=== PATIENT | female | born 2000 | race Caucasian/White ===

== ENCOUNTER 2019-06-15 19:25 | Outpatient (CLI) | payer MEDICAID, SELFPAY ==
[2019-06-15 19:49] VITALS: TEMP 36.5; O2SAT 98
[2019-06-15 19:50] VITALS: BP 114/62; PULSE 76
[2019-06-15 20:17] VITALS: BMI 29.4
[2019-06-15 20:33] LABS: ROM Internal Control Test YES-OK TO RESULT pt. (Internal QC); ROM Patient Test Negative (Negative)
--- NOTE | 2019-06-16 09:49 | OB.TRI.NOTE ---
History of Present Illness Date of Service: 06/15/19 Reason For Visit: rule out SROM, threatened PTL Date of Service: 06/15/19 Gestational age: 34 4/7 Allergies No Known Drug Allergies Allergy (Verified 06/15/19 20:20) none Laboratory Studies: Laboratory Tests 06/15/19 Range/Units 20:00 Vag Amniotic Fld Detect Negative (Negative) Physical Exam Vitals: Vital Signs Temp Pulse BP Pulse Ox 97.7 F L 76 114/62 98 06/15/19 19:49 06/15/19 19:50 06/15/19 19:50 06/15/19 19:49 NST - FHR Rate Baby A Baseline: 130 Variability:: Moderate Accelerations:: 15 x 15 Decelerations:: None NST Reactive:: Yes, Appropriate for gestational age FHR Category:: Category I Uterine Activity:: no ctxs Impression/Plan 18 YOF nulliparrous patient at 34 4/7 weeks, threatened PTL, no evidence of SROM or PTL d/c home and return prn or as scheduled symptomatic measures reviewed by nursing for musculoskeletal back pain
== END 2019-06-15 20:50 | disposition home or self-care (01) ==
LOC: WPOUT 19:36 → OBT 19:37
PROVIDERS: Visit Provider Obstetrics & Gynecology
DX: O60.03 Preterm labor without delivery, third trimester (principal); Z3A.34 34 weeks gestation of pregnancy
CPT/HCPCS: 59025; 59050; 84112; 99218; G0378

== ENCOUNTER 2019-06-20 21:05 | Outpatient (CLI) | payer MEDICAID, SELFPAY ==
[2019-06-20 21:12] VITALS: BMI 29.4
[2019-06-20 21:18] VITALS: TEMP 37; O2SAT 97
[2019-06-20 21:19] VITALS: BP 96/65; PULSE 92
[2019-06-20 22:44] VITALS: TEMP 36.1; O2SAT 97
[2019-06-20 22:45] VITALS: BP 102/68; PULSE 83; PULSE 85; O2SAT 97
[2019-06-20 23:30] VITALS: BP 104/74; PULSE 83; TEMP 36.1
--- NOTE | 2019-06-22 18:17 | OB.TRI.NOTE ---
History of Present Illness Was patient seen by the physician?: No Reason For Visit: RULE OUT LABOR Date of Service: 06/20/19 Final AMIE: 07/23/19 Gestational age: 35 Weeks and 4 Days Allergies No Known Drug Allergies Allergy (Verified 06/20/19 21:26) none Physical Exam Vitals: Vital Signs Temp Pulse BP Pulse Ox 97.0 F L 83 104/74 97 06/20/19 23:30 06/20/19 23:30 06/20/19 23:30 06/20/19 22:45 NST - FHR Rate Baby A Baseline: 125 Variability:: Moderate Accelerations:: 15 x 15 Decelerations:: Variable NST Reactive:: Yes Uterine Activity:: Irregular Impression/Plan Reactive NST for threatened PTL
== END 2019-06-20 23:55 | disposition home or self-care (01) ==
LOC: WPOUT 21:11 → WP 21:44
PROVIDERS: Visit Provider Obstetrics & Gynecology
DX: O60.00 Preterm labor without delivery, unspecified trimester (principal); Z3A.00 Weeks of gestation of pregnancy not specified
CPT/HCPCS: 59025; 59050; 99218; G0378

== ENCOUNTER → 2019-06-21 16:55 | Outpatient (CLI) | payer MEDICAID, SELFPAY ==
[2019-06-20 21:12] VITALS: BMI 29.4
[2019-06-21 17:02] VITALS: BMI 29.2
[2019-06-21 17:12] VITALS: BP 110/64; PULSE 95; TEMP 36.6
[2019-06-21 17:36] LABS: ROM Internal Control Test YES-OK TO RESULT pt. (Internal QC); ROM Patient Test Negative (Negative)
--- NOTE | 2019-06-24 10:56 | OB.TRI.NOTE ---
- Problem List (1) Vaginal discharge during Status: Acute History of Present Illness Date of Service: 06/21/19 Was patient seen by the physician?: No Reason For Visit: Vaginal discharge, possible rupture of membranes Date of Service: 06/21/19 Final AMIE: 07/23/19 Gestational age: 35 Weeks and 6 Days History of Present Illness: 18 year old female presented with vaginal discharge and possible rupture of membranes. No signs of active labor. O: Category 1 FHT ROM plus negative Cervix closed A: Vaginal discharge False labor P: 1) False Labor ok to D/C home Allergies No Known Drug Allergies Allergy (Verified 06/20/19 21:26) none Laboratory Studies: Laboratory Tests 06/21/19 Range/Units 17:08 Vag Amniotic Fld Detect Negative (Negative) Physical Exam Vitals: Vital Signs Temp Pulse BP 97.9 F 95 110/64 06/21/19 17:12 06/21/19 17:12 06/21/19 17:12
--- NOTE | 2019-06-25 11:49 | OB.TRI.NOTE ---
- Problem List (1) Vaginal discharge during Status: Acute History of Present Illness Date of Service: 06/24/19 Was patient seen by the physician?: No Reason For Visit: Vaginal discharge, possible rupture of membranes Date of Service: 06/21/19 Final AMIE: 07/23/19 Gestational age: 36 Weeks and 0 Days History of Present Illness: presents for contractions but have decreased since arrival. No vaginal bleeding or fluid leakage O: FHT 135, moderate variability, accels, reactive one contraction A: False Labor P: 1) Discharge home, labor instructions reviewed Allergies No Known Drug Allergies Allergy (Verified 06/20/19 21:26) none Laboratory Studies: Laboratory Tests 06/21/19 Range/Units 17:08 Vag Amniotic Fld Detect Negative (Negative) Physical Exam Vitals: Vital Signs Temp Pulse BP 97.9 F 95 110/64 06/21/19 17:12 06/21/19 17:12 06/21/19 17:12
== END | disposition home or self-care (01) ==
PROVIDERS: Referring Provider Advanced Practice Midwife; Visit Provider Advanced Practice Midwife
DX: O60.03 Preterm labor without delivery, third trimester (principal); Z3A.35 35 weeks gestation of pregnancy
CPT/HCPCS: 59025; 59050; 84112; 99218; G0378

== ENCOUNTER 2019-07-08 02:05 | Outpatient (CLI) | payer MEDICAID, SELFPAY ==
[2019-06-21 17:02] VITALS: BMI 29.2
[2019-07-08 02:18] VITALS: PULSE 82; O2SAT 97
[2019-07-08 02:19] VITALS: BP 105/62; PULSE 75
[2019-07-08 02:21] VITALS: BP 105/62; PULSE 82; TEMP 36.7; O2SAT 98
[2019-07-08 02:35] VITALS: BMI 30.9
[2019-07-08 03:05] LABS: ROM Internal Control Test YES-OK TO RESULT pt. (Internal QC); ROM Patient Test Negative (Negative)
--- NOTE | 2019-07-08 23:32 | OB.TRI.NOTE ---
History of Present Illness Date of Service: 07/08/19 Was patient seen by the physician?: No Reason For Visit: R/O SROM Final AMIE: 07/23/19 Gestational age: 37 Weeks and 6 Days Allergies No Known Drug Allergies Allergy (Verified 07/08/19 02:37) none Laboratory Studies: Laboratory Tests 07/08/19 Range/Units 02:40 Vag Amniotic Fld Detect Negative (Negative) Physical Exam Vitals: Vital Signs Temp Pulse BP Pulse Ox 98.0 F 82 105/62 98 07/08/19 02:21 07/08/19 02:21 07/08/19 02:21 07/08/19 02:21 NST - FHR Rate Baby A Baseline: 125 Variability:: Moderate Accelerations:: 15 x 15 Decelerations:: Variable NST Reactive:: Yes Uterine Activity:: Irritability Impression/Plan Reactive NST for false labor
== END 2019-07-08 04:00 | disposition home or self-care (01) ==
LOC: WPOUT 02:07 → WP 02:09
PROVIDERS: Visit Provider Obstetrics & Gynecology
DX: O47.1 False labor at or after 37 completed weeks of gestation (principal); Z3A.37 37 weeks gestation of pregnancy
CPT/HCPCS: 59025; 59050; 84112; 99218; G0378

== ENCOUNTER 2019-07-16 19:00 | Inpatient (IN) | payer MEDICAID, SELFPAY ==
[2019-07-16 19:31] VITALS: BMI 29.8
[2019-07-16 19:33] VITALS: PULSE 70; TEMP 36.7; O2SAT 99
[2019-07-16 19:34] VITALS: BP 106/65; PULSE 81
[2019-07-16] MEDS: Lactated Ringers 1,000 ML 50 ML IV (19:45)
[2019-07-16 20:05] LABS: Absolute Lymphocyte Count 1.55 X10^3/uL (0.83-4.51); Absolute Neutrophil Count 7.3 X10^3/uL (2.0-7.7); Basophil# 0.03 X10^3/uL; Basophil% 0.3 % (0-1); Eosinophil# 0.04 X10^3/uL; Eosinophils% 0.4 % (0-5); Hematocrit 34.1 % (37-47); Hemoglobin 11.2 g/dL (12.0-15.0); Lymphocyte # 1.55 X10^3/ul (4.0); Lymphocyte % 16.1 % (19-41); Mean Corp Hgb Conc 32.8 g/dL (32-36); Mean Corpuscular Hgb 29.1 pg (27.0-32.0); Mean Corpuscular Volume 88.6 fL (81-99); Mean Platelet Vol. 11.7 fl (6.2-12.0); Monocyte# 0.65 X10^3/uL; Monocyte% 6.8 % (0-10); NRBC Flagged by Analyzer 0 % (0-5); Neutrophil # 7.27 X10^3/uL (2.7-7.7); Neutrophil % 75.8 % (47-70); Platelet Count 219 K/mm3 (150-450); RBC Distribution Width SD 44.3 fl (35.1-43.9); Red Blood Count 3.85 M/mm3 (4.2-5.4); White Blood Count 9.6 K/mm3 (4.4-11.0)
[2019-07-16] MEDS: miSOPROStol 25 MCG TABLET PO (20:30)
[2019-07-16 22:15] LABS: Probe Check PASS; Specimen Processing Control PASS
[2019-07-16 22:22] VITALS: PULSE 61; TEMP 36.6; O2SAT 98
[2019-07-16 22:23] VITALS: BP 112/66; PULSE 73
[2019-07-17] VITALS (49 sets, daily range): BP systolic 99–132; BP diastolic 58–79; PULSE 51–132; RESP 16; TEMP 36.1–37.7; O2SAT 90–99
--- NOTE | 2019-07-17 00:18 | PCM.HP.OB ---
- Problem List (1) Polyhydramnios Status: Acute (2) Encounter for induction of labor Status: Acute History Date of Admission: 07/17/19 Final AMIE: 07/23/19 Final AMIE Source: US <20 weeks Gestational age: 39 Weeks and 1 Days History of this : This is a 19 year-old, G [1], P [0], at 39 weeks gestational age. Presents for induction of labor for polyhydramnios. Allergies No Known Drug Allergies Allergy (Verified 07/16/19 19:32) none Home Medications: Home Medications Vits [Prenatabs FA ] 1 tab PO DAILY 06/15/19 Smoking Status: Never smoker Alcohol: None Number of Fetus(es): 1 NST - FHR Rate Baby A Baseline: 130 Variability:: Moderate Accelerations:: 15 x 15 Decelerations:: None FHR Category:: Category I Uterine Activity:: Irregular History Past Pregnancies: Past Pregnancies Delivery Date Name GA/ Weeks Outcome Route Wt Infant Sex Labor Length Anesthesia Delivery Location Provider FOB Labs: Mom's Problem List Problem Status Onset Code Polyhydramnios Acute O40.9XX0 Encounter for induction of labor Acute Z34.90 Mom's Labs & Results 07/16/19 07/16/19 07/16/19 19:45 19:45 20:10 WBC 9.6 RBC 3.85 L Hgb 11.2 L Hct 34.1 L MCV 88.6 MCH 29.1 MCHC 32.8 RDW Std Deviation 44.3 H RDW Coeff of Edouard 14.0 Plt Count 219 MPV 11.7 Immature Gran % (Auto) 0.600 Neut % (Auto) 75.8 H Lymph % (Auto) 16.1 L [place] % (Auto) 6.8 Eos % (Auto) 0.4 Baso % (Auto) 0.3 Absolute Neuts (auto) 7.3 Absolute Lymphs (auto) 1.55 Nucleated RBC % 0 COVID-19 (QUEENIE) Negative Blood Type A POSITIVE Antibody Screen NEGATIVE Course Did the patient receive Yes care? Labs Blood Type: A RH: POSITIVE RPR/VDRL/Syphilis Nonreactive Rubella status Immune HbSAg Negative Date Done: 01/12/19 Chlamydia Negative Gonorrhea Negative HIV/AIDS Non-Reactive Group B Strep: Negative Current Obstetrical History Gestational Diabetes No Incompetent Cervix No Infertility No IUGR No Macrosomia No: LGA possible per pt report Hypertension/Pre-eclampsia No Placenta Previa/Abruption No PTL/PROM No Uterine anomaly No Oligohydramnios No Polyhydramnios Yes: FERDINAND 35-36 Multiple gestation No Past Medical History Asthma No Diabetes No Hypertension No Heart disease No Mitral valve prolapse No Neurologic/Seizure disorder/ No Migraines Kidney disease No Liver disease No Varicosities No Clotting disorders/Hx of DVT No Thyroid Dysfunction No Other medical diseases No Psychiatric disorders No Major trauma No Abnormal PAP smear No Sleep apnea No Mammogram in the last 2 years No Enter DETAILS of medical 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 Social History Marital Status: SINGLE Alleged father Zeke Hx Smoking No Smoking Status Never smoker Expected Delivery Method: Spontaneous Vaginal Review of Systems Constitutional: Denies: Chills, Fever, Weight Change HEENT: Denies: Head Aches, Sinus Congestion, Sinus Drainage Cardiovascular: Denies: Chest Pain, Palpitations Respiratory: Denies: Cough, Shortness of breath at rest, Sputum production Gastrointestinal: Denies: Abdominal Pain, Nausea, Vomiting Genitourinary: Denies: Dysuria Psychiatric: Denies: Anxiety, Depression, Homicidal Ideations, Suicidal Ideations Physical Exam Vitals: Vital Signs Temp Pulse BP Pulse Ox 97.1 F L 63 117/74 98 07/17/19 00:03 07/17/19 00:04 07/17/19 00:04 07/17/19 00:03 General: Alert, Oriented x3, Cooperative HEENT: Atraumatic, Normocephalic Cardiovascular: Regular rate, Regular Rhythm, No murmurs Lungs: Clear to auscultation, Normal air movement, No rhonchi, No wheeze Abdomen: Bowel Sounds Present, Gravid Extremities:: No edema Neurological: Deep Tendon Reflexes 2+/4 and Symmetrical MANAGER [place]: Normal external genitalia Estimated gestational size: Appropriate for gestational size Presentation: Cephalic Cervix Dilation (cm): 1.5 - per nursing staff Station: -2 Effacement (%): 70 Assessment/Plan All Active Problems Vaginal discharge during (Acute) Polyhydramnios (Acute) Encounter for induction of labor (Acute) This is a 19 year-old, G [], P [], at 39 weeks gestational age.
[2019-07-17] MEDS: Oxytocin 30 units/NS 500 ml 30 UNITS/500 ML IV.SOLN IV (00:57)
[2019-07-17] MEDS: fentaNYL 100 MCG/2 ML Ampul IV ×4 (08:20→14:20)
--- NOTE | 2019-07-17 08:22 | PN.OBGYN_ITS ---
Patient Problems: Active and Suspected Problems Polyhydramnios (Acute) Encounter for induction of labor (Acute) Subjective: Patient seen at bedside. Reports increased pain with contractions. Rates pain 8/10. May get IV pain medication, does not want epidural at this time. Objective: at 39.1 weeks gestation here for induction of labor for polyhydramnios. CE- 2/70/-2 Pitocin rate at 10 mu/min Category 1 tracing FHT 140's Contractions via TOCO 1-4min and palpates minimal and relaxed in between - Physical Exam Vitals/I&O's: Vital Signs Temp Pulse BP Pulse Ox 97.9 F 60 109/74 99 07/17/19 07:08 07/17/19 08:05 07/17/19 08:05 07/17/19 07:08 Weight: 163 lb Body Mass Index (BMI) 29.8 Intake and Output for Last 24 Hours 07/15/19 07/16/19 07/17/19 23:59 23:59 23:59 Intake Total 1810.67 / 1810.67 Output Total 100 / 100 450 / 450 Balance -100 / -100 1360.67 / 1360.67 General: Alert, Oriented x3, Cooperative HEENT: Atraumatic, PERRLA, EOMI, Normocephalic Neck: Supple Lungs: Normal air movement Cardiovascular: Regular rate Abdomen: Soft, Non Tender, Gravid Skin: No rashes Neurological: Cranial nerves II-XII grossly intact Psych/Mental Status: Normal Affect, Appropriate Laboratory Results 07/16/19 19:45: WBC 9.6, RBC 3.85 L, Hgb 11.2 L, Hct 34.1 L, MCV 88.6, MCH 29.1, MCHC 32.8, RDW Std Deviation 44.3 H, RDW Coeff of Edouard 14.0, Plt Count 219, MPV 11.7, Immature Gran % (Auto) 0.600, Neut % (Auto) 75.8 H, Lymph % (Auto) 16.1 L, [place] % (Auto) 6.8, Eos % (Auto) 0.4, Baso % (Auto) 0.3, Absolute Neuts (auto) 7.3, Absolute Lymphs (auto) 1.55, Nucleated RBC % 0 07/16/19 19:45: Blood Type A POSITIVE, Antibody Screen NEGATIVE 07/16/19 20:10: COVID-19 (QUEENIE) Negative Current Medications Acetaminophen (Tylenol) 325 - 650 mg PO Q4H PRN PRN PRN Reason: Pain Score 1-3/10 Al Hydroxide/Mg Hydroxide (Mylanta Ii) 15 - 30 ml PO Q4H PRN PRN PRN Reason: INDIGESTION Citric Acid/Sodium Citrate (Bicitra) 30 ml PO X1 PRN PRN Reason: Section Fentanyl Citrate (Sublimaze (100mcg Ampule)) 25 - 50 mcg IV Q2H PRN PRN PRN Reason: Pain Score 4-10/10 Last Admin: 07/17/19 08:20 Dose: 50 mcg Documented by: Lactated Ringer's () 500 mls @ 999 mls/hr IV .Q31M PRN PRN Reason: Epidural Lactated Ringer's () 500 mls @ 999 mls/hr IV .Q31M PRN PRN Reason: Corrective Measures Lactated Ringer's () 1,000 mls @ 50 mls/hr IV .Q20H [facility] Last Infusion: 07/17/19 07:29 Dose: 50 mls/hr Documented by: Oxytocin/Sodium Chloride () 30 units in 500 mls @ 2 mls/hr IV .Q250H [facility] Last Infusion: 07/17/19 05:40 Dose: 10 mls/hr Documented by: Ondansetron HCl (Zofran) 4 mg IV Q4H PRN PRN PRN Reason: NAUSEA Prochlorperazine Edisylate (Compazine Iv) 10 mg IV Q6H PRN PRN PRN Reason: NAUSEA Sodium Chloride () 10 - 40 ml IV X1 PRN PRN Reason: SALINE FLUSH Medical Necessity - Tobacco Use Smoking Status: Never smoker Assessment/Plan All Active Problems Vaginal discharge during (Acute) Polyhydramnios (Acute) Encounter for induction of labor (Acute) at 39.1 weeks gestation here for induction of labor due to polyhydramnios A/P Continue current management Titrate pitocin per protocol Pain medication if indicated Discussed A.R.O.M later this afternoon if minimal cervical change Anticipate
[2019-07-17] MEDS: Lactated Ringers 500 ML 999 ML IV ×2 (09:38→15:10)
[2019-07-17] MEDS: Lactated Ringers 1,000 ML 50 ML IV (10:18)
[2019-07-17] MEDS: Ondansetron 4 MG/2 ML Vial IV (13:02)
--- NOTE | 2019-07-17 13:08 | PCM.PN.BLA ---
Progress Note Patient seen at bedside. Reports pain increasing with contractions. Has received 3 doses of IV pain medication. Breathing well through contractions. Category 1 tracing - Pitocin being titrated slowly due to some times warranting tachysystole. Pitocin at 12mu/min. Contractions every 1-3 minutes that continue to palpate mild and relaxed in between. Dr. Olea in room and CE completed = /-2 ( no change from this morning's exam) A/P at 39.1 weeks gestation induction for polyhydramnios Category 1 tracing A.R.O.M for moderate amount of clear fluid Continue current plan of care Epidural when indicated Anticipate Dr. Moyer notified of above and agrees with plan of care STROKE Vital Signs/Narrative: Vital Signs Temp Pulse BP Pulse Ox 07/17/19 12:28 70 123/77 H 07/17/19 11:36 58 L 120/79 98 07/17/19 11:35 97.9 F 07/17/19 10:20 54 L 132/76 H 07/17/19 09:14 60 99/65 07/17/19 09:13 98
[2019-07-17] MEDS: Oxytocin 30 units/NS 500 ml 30 UNITS/500 ML IV.SOLN 334 UNITS IV (18:13)
--- NOTE | 2019-07-17 19:00 | PCM.OPRPT ---
Problem List (1) 39 weeks gestation of Status: Acute (2) Primiparous Status: Acute (3) Polyhydramnios Status: Acute Report of Operation Date of Procedure: 07/17/19 Pre-Operative Diagnosis: 39 week gestation, primiparous patient, polyhydramnios, LGA Post-Operative Diagnosis: As above Surgery/Procedure Performed:: Description of Surgical Findings:: Macrosomic in OA position. 1 min 37 sec shoulder dystocia. Normal appearing and intact placenta with a three-vessel cord. Type of Anesthesia:: None Special Medications: None Specimen's removed: Placenta Drains: None Estimated Blood Loss (mL): 350 Description of Procedure: Patient was complete and pushing. The head of the delivered in occiput anterior position by Siri Portillo CNM. After delivery of the head, I stepped in for the remainder of the delivery as there was a delay in delivering the anterior shoulder. Suprapubic pressure was applied for about 60 seconds and the anterior shoulder was unable to be delivered with suprapubic pressure. An episiotomy was created, and the posterior arm was then delivered without any force or delay. Once the posterior arm was delivered the shoulders, then followed by the body of the were delivered without any force or delay. The shoulder dystocia was 1 minute and 37 seconds in length. The cord was clamped and cut immediately and the infant was handed off to the nursery staff. Cord gases were collected. The placenta delivered spontaneously and was noted to be intact. The fundus was firm and bleeding was hemostatic. A 3rd degree perineal laceration was repaired in usual fashion. Sponge and instrument counts were correct. Vaginal sweep was performed. Grafts/Implants Used: None - Complications None - Admit VTE Documentation VTE Present on Admission: No VTE Mechan Device Prophylaxis: SCD's Vaginal Delivery Maternal Presentation: Medically Indicated Induction Method of Induction: Pitocin, Amniotomy, Cytotec Medical Reason for Induction: - - Polyhydramnios Amniotic Membrane Rupture Type: Artificial Amniotic Fluid Description: Clear Surgery/ Procedure Performed: Spontaneous Vaginal Delivery Type of Anesthesia: None Presentation: Vertex Placental Delivery Description: Spontaneous Cord Vessel Description: 3 Vessels Cord Gases drawn per routine: ABG, VBG Cord Entanglement: None Infant A gender: Female (1 minute): 8 (5 minute): 9 Episiotomy Description: Midline Laceration: 3rd degree Medications given after delivery: IV Pitocin Complications: None
--- NOTE | 2019-07-17 20:19 | PCM.PN.BLA ---
Progress Note 1530- Called to hospital due to patient being 10cm dilated and bearing down with contractions. at 39.1 weeks for induction of labor for polyhydramnios. Patient bearing down with contractions. Stated feels good to push with contractions. Pitocin recently decreased to 7mu/min due to tachysystole. Labor support given to patient Anticipate Dr. Moyer called to room once 2+ station due to possibly LGA STROKE Vital Signs/Narrative: Vital Signs Pulse BP Pulse Ox 07/17/19 20:09 65 119/72 07/17/19 19:54 64 126/75 H 07/17/19 19:40 69 97 07/17/19 19:39 78 126/77 H 07/17/19 19:27 79 99 07/17/19 19:24 69 121/74 H 07/17/19 19:10 60 97 07/17/19 19:09 63 120/72 07/17/19 18:06 132 H 96 07/17/19 17:58 93 97 07/17/19 17:53 100 96 07/17/19 17:49 80 129/59 H
[2019-07-17] MEDS: 0.9% Saline Lock 10 ML Syringe IV (21:11)
--- NOTE | 2019-07-17 21:42 | NURSING ---
report given to aorr RN. that rn to assume care of pt and infant at this time.
[2019-07-17] MEDS: Ibuprofen 600 MG Tablet PO (21:54)
[2019-07-18] VITALS (8 sets, daily range): BP systolic 104–121; BP diastolic 57–67; PULSE 67–84; RESP 14–16; TEMP 36.6–36.9; O2SAT 98–99
[2019-07-18] MEDS: Acetaminophen 500 MG Tablet 1000 MG PO ×2 (01:36→13:17)
[2019-07-18] MEDS: Ibuprofen 600 MG Tablet PO ×3 (04:46→19:13)
--- NOTE | 2019-07-18 07:58 | PCM.PN.OB ---
Patient Problems: Active and Suspected Problems (Last Updated 07/17/19 @ 08:28 by Siri Portillo CNM) 39 weeks gestation of (Acute) Primiparous (Acute) Third degree perineal laceration during delivery (Acute) Polyhydramnios (Acute) Encounter for induction of labor (Acute) Subjective: Patient seen at bedside. Resting comfortably. Pain controlled with Tylenol and Motrin PO. Lochia decreasing. Keeping ice/tucks to perineum. . Voicing no concerns at this time. - Physical Exam Vitals/I&O's: Vital Signs Temp Pulse Resp BP Pulse Ox 97.9 F 84 14 109/67 97 07/18/19 04:27 07/18/19 04:27 07/18/19 04:27 07/18/19 04:27 07/17/19 21:09 Oxygen Delivery Method Room Air Weight: 163 lb Body Mass Index (BMI) 29.8 Intake and Output for Last 24 Hours 07/16/19 07/17/19 07/18/19 23:59 23:59 23:59 Intake Total 4291.37 / 4291.37 Output Total 100 / 100 1400 / 1400 450 / 450 Balance -100 / -100 2891.37 / 2891.37 -450 / -450 General: Alert, Oriented x3, Cooperative Lungs: Normal air movement Abdomen: Soft, Non Tender Extremities: No Calf Tenderness Skin: No rashes Neurological: Cranial nerves II-XII grossly intact Psych/Mental Status: Normal Affect, Appropriate Current Medications Acetaminophen (Tylenol) 1,000 mg PO Q8H PRN PRN PRN Reason: Pain Score 1-310 Last Admin: 07/18/19 01:36 Dose: 1,000 mg Documented by: Bisacodyl (Dulcolax) 10 mg RECTAL UD PRN PRN Reason: If no BM Dibucaine (Dibucaine) 1 applic TOPICAL TID PRN PRN; Protocol PRN Reason: Discomfort Hydrocortisone (Hytone) 1 applic TOPICAL TID PRN PRN; Protocol PRN Reason: Discomfort Ibuprofen (Motrin) 600 mg PO Q6H PRN PRN PRN Reason: Pain Score 1-3/10 Last Admin: 07/18/19 04:46 Dose: 600 mg Documented by: Methylergonovine Maleate (Methergine) 0.2 mg IM X1 PRN PRN Reason: Excess bleeding/uterine atony Ondansetron HCl (Zofran) 4 mg IV Q4H PRN PRN PRN Reason: Nausea Oxycodone HCl (Oxyir) 5 - 10 mg PO Q4H PRN PRN PRN Reason: Pain Score 4-10/10 Senna/Docusate Sodium (Senokot-S, Janice-Colace) 1 - 2 tablet PO DAILY PRN PRN PRN Reason: Constipation Simethicone (Mylicon) 80 mg PO PCHS PRN PRN Reason: Indigestion/Stomach pain Sodium Chloride () 5 - 15 ml IV UD PRN PRN Reason: SALINE FLUSH Medical Necessity - Tobacco Use Smoking Status: Never smoker Assessment/Plan All Active Problems (Last Updated 07/17/19 @ 08:28 by Siri Portillo CNM) 39 weeks gestation of (Acute) Primiparous (Acute) Third degree perineal laceration during delivery (Acute) Vaginal discharge during (Acute) Polyhydramnios (Acute) Encounter for induction of labor (Acute) PPD #1 Pain controlled Continue present management
[2019-07-18] MEDS: Senna/Docusate Sodium 1 Tablet PO (13:17)
[2019-07-19 01:46] VITALS: BP 105/70; PULSE 73
[2019-07-19 01:47] VITALS: BP 105/70; PULSE 73; RESP 16; TEMP 36.4
[2019-07-19] MEDS: Ibuprofen 600 MG Tablet PO ×2 (02:15→08:46)
[2019-07-19 07:41] VITALS: BP 107/60; PULSE 71
[2019-07-19 07:42] VITALS: BP 107/60; PULSE 71; RESP 16; TEMP 36.9; O2SAT 99
--- NOTE | 2019-07-19 08:02 | PCM.PN.OB ---
Patient Problems: Active and Suspected Problems (Last Updated 07/17/19 @ 08:28 by Siri Portillo CNM) Third degree perineal laceration during delivery (Acute) 39 weeks gestation of (Acute) Primiparous (Acute) Polyhydramnios (Acute) Encounter for induction of labor (Acute) Subjective: Doing well. Pain well controlled. Ambulating voiding without difficulty. Tolerating regular diet without nausea or vomiting. Lochia normal. Denies lightheadedness, dizziness, chest pain, shortness of breath, leg pain. - Physical Exam Vitals/I&O's: Vital Signs Temp Pulse Resp BP Pulse Ox 98.5 F 71 16 107/60 99 07/19/19 07:42 07/19/19 07:42 07/19/19 07:42 07/19/19 07:42 07/19/19 07:42 Oxygen Delivery Method Room Air Weight: 163 lb Body Mass Index (BMI) 29.8 Intake and Output for Last 24 Hours 07/17/19 07/18/19 07/19/19 23:59 23:59 23:59 Intake Total 4291.37 / 4291.37 250 / 250 Output Total 1400 / 1400 450 / 450 Balance 2891.37 / 2891.37 -200 / -200 General: Alert, No apparent distress HEENT: Atraumatic Abdomen: Soft, - - ATTP, FF@U Extremities: No edema, No Calf Tenderness Skin: No rashes Neurological: Neuro grossly intact Psych/Mental Status: Normal Affect Current Medications Acetaminophen (Tylenol) 1,000 mg PO Q8H PRN PRN PRN Reason: Pain Score 1-310 Last Admin: 07/18/19 13:17 Dose: 1,000 mg Documented by: Bisacodyl (Dulcolax) 10 mg RECTAL UD PRN PRN Reason: If no BM Dibucaine (Dibucaine) 1 applic TOPICAL TID PRN PRN; Protocol PRN Reason: Discomfort Hydrocortisone (Hytone) 1 applic TOPICAL TID PRN PRN; Protocol PRN Reason: Discomfort Ibuprofen (Motrin) 600 mg PO Q6H PRN PRN PRN Reason: Pain Score 1-3/10 Last Admin: 07/19/19 02:15 Dose: 600 mg Documented by: Methylergonovine Maleate (Methergine) 0.2 mg IM X1 PRN PRN Reason: Excess bleeding/uterine atony Ondansetron HCl (Zofran) 4 mg IV Q4H PRN PRN PRN Reason: Nausea Oxycodone HCl (Oxyir) 5 - 10 mg PO Q4H PRN PRN PRN Reason: Pain Score 4-10/10 Senna/Docusate Sodium (Senokot-S, Janice-Colace) 1 - 2 tablet PO DAILY PRN PRN PRN Reason: Constipation Last Admin: 07/18/19 13:17 Dose: 2 tablet Documented by: Simethicone (Mylicon) 80 mg PO PCHS PRN PRN Reason: Indigestion/Stomach pain Sodium Chloride () 5 - 15 ml IV UD PRN PRN Reason: SALINE FLUSH Medical Necessity - Tobacco Use Smoking Status: Never smoker Assessment/Plan All Active Problems (Last Updated 07/17/19 @ 08:28 by Siri Portillo CNM) Third degree perineal laceration during delivery (Acute) 39 weeks gestation of (Acute) Primiparous (Acute) Vaginal discharge during (Acute) Polyhydramnios (Acute) Encounter for induction of labor (Acute) Pt is day 2 from a spontaneous vaginal delivery. Discussed shoulder dystocia and third-degree laceration with patient and all questions answered. Discussed recommendation for growth ultrasound on third trimester with next , and possible primary section given risk of recurrence with shoulder dystocia and third-degree laceration. Discussed stool softener at home and keeping bowel movements regular. She feels ready to go home and is doing well. Discharge instructions reviewed and follow-up reviewed. Discharged home in good condition.
--- NOTE | 2019-07-19 08:07 | DCINST_ITS ---
Discharge Diet: No Restrictions Discharge Activity: May Shower, May Take a Tub Bath May resume sexual activity in: 6 weeks Ice area for (Minutes): 15 Weight Bearing Status: Weight bearing as tolerated Lifting Restrictions: Nothing heavier than baby for 4 weeks Call your doctor if you observe: Fever of 101 or Higher, Inability to urinate, Inability to have a bowel movement, Using more than one pad per hour, Shortness of breath, Dizziness, Fainting spells, Chest pain, Increased palpitations (irregular heartbeat), Calf discomfort, Uncontrolled pain Cleanse incision/area with: Soap & Water Additional Instructions: If you experience any of the following, contact your healthcare provider. * Bleeding that soaks a pad every hour for 2 hours * Fever 100.4 or higher * Unrelieved incision or abdominal pain * Swelling, redness, discharge or bleeding from your incision or episiotomy site * Your incision begins to separate * Problems urinating (including inability to urinate or burning while urinating). * Visual changes * Severe headache * Flu-like symptoms * Pain or redness in one of both of your breasts * Pain, warmth, tenderness or swelling in your legs, especially the calf area * Frequent nausea and vomiting * Symptoms of depression or anxiety If you experience any of the following, call 911 or go to the nearest Emergency Room. * Chest pain * Problems breathing * Seizure activity * Partial or complete paralysis of a body part, slurred speech, weakness or drooping of the face, or a sudden inability to walk or hold your balance Allergies/Adverse Reactions: Allergies No Known Drug Allergies Allergy (Verified 07/16/19 19:32) none Medications to take at Discharge Vits [Prenatabs FA ] 1 tab PO DAILY 06/15/19 Docusate Sodium [Colace] 100 mg PO BID #60 cap 07/19/19 The following prescriptions were given: Docusate Sodium [Colace] 100 mg PO BID #60 cap Transmission Status: Pending to [facility] Please Follow Up With: Neyda Moyer DO When: For virtual visit in 1-2 weeks, and in office at 6 weeks Primary Care Physician: Care Physician,No Primary [Primary Care Provider] - Test Results: Test results from this visit will be discussed in further detail at your follow- up appointment, if applicable.
== END 2019-07-19 11:05 | disposition home or self-care (01) | DRG 542 ==
PROVIDERS: Admitting Provider Advanced Practice Midwife; Referring Provider Advanced Practice Midwife; Visit Provider Advanced Practice Midwife
DX: O40.3XX0 Polyhydramnios, third trimester, not applicable or unspecified (principal); O66.0 Obstructed labor due to shoulder dystocia; O70.20 Third degree perineal laceration during delivery, unspecified; Z3A.39 39 weeks gestation of pregnancy; Z37.0 Single live birth
CPT/HCPCS: 59025; 59050; 85025; 86850; 86900; 86901; 87635; 99218; G2023; J7120; A4216; G0378; J2405; U0003

== ENCOUNTER 2020-12-09 12:51 | Emergency (ER) | payer MEDICAID, SELFPAY ==
[2020-12-09 12:52] VITALS: BP 94/64; PULSE 79; RESP 18; TEMP 35.5; O2SAT 98; BMI 26.0
[2020-12-09 15:38] VITALS: BP 99/64; PULSE 90; RESP 18; O2SAT 100
[2020-12-09] MEDS: 0.9% Normal Saline 1,000 ML 1000 ML IV (16:22)
[2020-12-09] MEDS: Loperamide 2 MG Capsule 4 MG PO (16:22)
[2020-12-09 16:36] LABS: Red Blood Cells-Urine 0 SEEN /hpf (0-5)
[2020-12-09 16:51] LABS: Color, Urine Yellow (Yellow); Glucose, Dipstick Normal (Normal); Leukocyte Esterase-Dipstick 100 /ul (Negative); Nitrite-Dipstick Negative (Negative); Occult Blood-Urine Negative /ul (Negative); Protein-Dipstick 15 mg/dl (Negative); Specific Gravity, Urine 1.015 (1.002-1.030); Urine Bilirubin Dipstick Negative (Negative); Urine Clarity Sl. Cloudy (Clear); Urine Urobilinogen Normal (Normal); Urine pH 6.5 (5.0 - 8.0)
[2020-12-09 16:52] LABS: Ketone-Dipstick 150 mg/dl (Negative)
[2020-12-09 16:58] LABS: Bacteria 1+ /hpf (None Seen); Mucous, Urine 1+ /hpf (<or=2+); Renal Epithelial Cells 0-5 SEEN /hpf (0-5); Squamous Epithelial Cells - UA 10-25 SEEN /hpf (5-10); White Blood Cells 0-5 SEEN /hpf (0-5)
[2020-12-09 17:02] LABS: Anion Gap 6 (5-15); BUN 5 mg/dL (7-18); Chloride 105 mmol/L (98-107); Creatinine, Serum 0.42 mg/dL (0.55-1.02); EST Glomerular Filtration Rate 204 mL/min (>60); Est Glom Filt Rate - Afr Amer 247 mL/min (>60); Estimated Creatinine Clearance 167.58 ml/min; Glucose 77 mg/dL (74-106); Potassium 3.4 mmol/L (3.5-5.1); Sodium Level 136 mmol/L (136-145)
[2020-12-09 17:06] VITALS: PULSE 76; RESP 18; O2SAT 99
--- NOTE | 2020-12-09 17:12 | EDS_ITS ---
HPI History of Present Illness Chief Complaint: Nausea/Vomiting/Diarrhea Informant: patient Onset/Context/Timing Onset: Today Context: Sudden Onset Timing: Intermittent Quality: Nausea, vomiting and diarrhea Location: Started early this morning Current Severity: Mild Maximum Severity: Severe Worsened by: Nothing Relieved by: Nothing Associated Symptoms Associated Symptoms: Dry mouth, thirst and orthostatic symptoms Narrative Narrative: Patient is a G2, P1 female who is 16 weeks gestation and presents with nausea, vomiting diarrhea. She denies any ill contacts. She is on vitamins. She states she noticed some blood on the tissue. She has no history of hemorrhoids. She denies odor to her stool. She has not been on antibiotics. She is not consumed any well water or spring water. She denies fever, chills night sweats. She does report mild head discomfort that she localizes over the left side of the forehead. She denies double vision, blurred vision loss of vision. [place] ringing in ears or decreased hearing. She denies any upper respiratory symptoms. She denies cardiac symptoms. She denies dysuria, frequency, urgency or hematuria. She denies myalgias, arthralgias or back pain. Prior similar symptoms: No Recent Illness/Hospitalization: No PFSH PFS Medical History Vaginal discharge during Home Medications vit,[id number] 1 tab PO DAILY 06/15/19 [History Last Taken 07/16/19] Allergy/AdvReac Type Severity Reaction Status Date / Time No Known Drug Allergies Allergy none Verified 12/09/20 15:34 Social History (Updated 12/09/20 @ 17:[address] Dakotah Mg MD) household members: children Smoking Status: Never smoker alcohol intake: never substance use type: does not use ROS ROS ED Constitutional Constitutional ED: Denies chills, fever(s), subjective or sweats Eyes Eyes: Denies blurry vision, change in vision or diplopia ENT ENT ED: Denies ear pain, rhinorrhea or sore throat Cardiovascular Cardiovascular: Denies chest pain, orthopnea, palpitations or racing heartbeat Respiratory/Chest Respiratory/Chest: Denies cough, dyspnea, dyspnea on exertion, orthopnea or sputum Gastrointestinal Gastrointestinal: Reports diarrhea, nausea, vomiting and other Details: Hemat ochezia ; Denies abdominal pain, constipation or melena Genitourinary Genitourinary ED: Denies dysuria, hematuria or urinary frequency Musculoskeletal Musculoskeletal: Denies arthralgias, back pain, myalgias or neck pain Integumentary Denies rash Neurologic Neurologic: Denies headache(s), paresthesias or weakness Endocrine Endocrinology: Denies polydipsia, polyphagia or polyuria Allergic/Immunologic Allergic/Immunologic ED: Denies mouth swelling, tongue swelling or urticaria EXAM Physical Exam Const Vital Signs: 12/09/20 12:52 12/09/20 15:38 12/09/20 17:06 Temperature 96 F L Temperature Source Temporal Pulse Rate 79 90 76 Respiratory Rate 18 18 18 Blood Pressure 94/64 99/64 Blood Pressure Mean 74 75 Pulse Ox 98 100 99 Oxygen Delivery Method Room Air Room Air Room Air Positive well nourished and well developed General Appearance ED: well developed and NAD; Negative for cyanotic, diaphoretic or pallor HEENT HEENT Narrative: Head is atraumatic normocephalic. Ears normal. Nares patent. Posterior pharynx unremarkable. Mucosa is dry. Eyes PERRL and EOMs intact bilaterally General Eye ED: Negative for pale conjunctiva or scleral icterus Neck no lymphadenopathy, supple and no JVD Chest Wall inspection of chest normal Resp normal respiratory effort and clear to auscultation bilaterally Cardio regular rate, regular rhythm, S1 normal heart sound, S2 normal heart sound and no murmurs GI normal to inspection, nondistended, normoactive bowel sounds, non-tender and non-distended GI Narrative: Fundal height is 3 to 4 fingerbreadths below the umbilicus Palpation: soft Back/Spine no CVA tenderness Cervical Spine: Negative for cervical spine tenderness Thoracic Spine / Upper Back: Negative for thoracic spinal tenderness or paraspinal muscle tenderness Extremity normal to inspection General Extremety ED: Negative for edema or tenderness General Extremity: Negative for edema Neuro oriented x3, CN's II-XII intact bilaterally and no sensory deficits noted Sensorium / Orientation: alert Motor Exam: strength 5/5 throughout Psych mental status grossly normal Skin no rashes or lesions noted, no wounds and skin turgor normal General Skin Exam: Negative for jaundice or pallor MDM MDM MDM Narrative Medical decision making narrative: Patient presents with nausea combine diarrhea. Most likely she has a viral illness. Will assess urine for ketones and specific gravity. Basic metabolic panel to assess electrolytes and specifically potassium as well as renal function. She received 1 L normal saline, 4 mg of Imodium. She was reassessed at 1710. She is sitting up smiling eating in no distress. Lab Data Attestation: I reviewed the patient's lab results. Lab results narrative: Basic metabolic panel is unremarkable. Potassium is 3.4 which is nonsignificant. Urine is a contaminated specimen with 25 epithelial cells. There is also ketones noted. Labs: Laboratory Results - last 24 hr 12/09/20 12/09/20 16:25 16:25 Sodium 136 Potassium 3.4 L Chloride 105 Carbon Dioxide 25.0 Anion Gap 6 BUN 5 L Creatinine 0.42 L Estim Creat Clear Calc 167.58 Est GFR (MDRD) Af Amer 247 Est GFR (MDRD) Non-Af 204 BUN/Creatinine Ratio 12.0 Glucose 77 Calcium 9.0 Urine Color Yellow Urine Clarity Sl. Cloudy Urine pH 6.5 Ur Specific [place] 1.015 Urine Protein 15 H Urine Glucose (UA) Normal Urine Ketones 150 A* Urine Occult Blood Negative Urine Nitrite Negative Urine Bilirubin Negative Urine Urobilinogen Normal Ur Leukocyte Esterase 100 H Urine RBC 0 SEEN Urine WBC 0-5 SEEN Ur Squamous Epith Cells 10-25 SEEN Ur Renal Epithelial Cell 0-5 SEEN Urine Bacteria 1+ Urine Mucus 1+ Discharge Plan Triage Chief Complaint: Nausea/Vomiting/Diarrhea ED Provider: Dakotah Mg Dx/Rx/DC Orders Clinical Impression: Nausea vomiting and diarrhea, Acute dehydration, Ketosis Instructions: Dehydration, ED Vomiting and Diarrhea ... Prescriptions: No Action vit,[id number] 1 TABLET tablet 1 tab PO DAILY RF: 0 Primary Care Provider: Care Physician,No Primary Referrals: Care Physician,No Primary [Primary Care Provider] - Doctor,Your [STAFF PHYSICIAN] - 1-2 Days if not improving Disposition Disposition: Home, Self Care
== END 2020-12-09 17:20 | disposition home or self-care (01) ==
PROVIDERS: Emergency Provider Emergency Medicine
DX: O26.892 Other specified pregnancy related conditions, second trimester (principal); E86.0 Dehydration; R11.2 Nausea with vomiting, unspecified; E88.89 Other specified metabolic disorders; R19.7 Diarrhea, unspecified; Z3A.16 16 weeks gestation of pregnancy
CPT/HCPCS: 80048; 81001; 96360; 99284; J7030; A4216

== ENCOUNTER 2021-05-19 04:45 | Inpatient (IN) | payer MEDICAID, SELFPAY ==
[2021-05-19] VITALS (18 sets, daily range): BP systolic 90–121; BP diastolic 55–70; PULSE 67–103; RESP 12–16; TEMP 35.8–36.6; O2SAT 95–99; BMI 30.5
[2021-05-19] MEDS: Lactated Ringers 1,000 ML 999 ML IV (05:10)
[2021-05-19 05:45] LABS: Absolute Lymphocyte Count 1.82 X10^3/uL (0.83-4.51); Absolute Neutrophil Count 7.5 X10^3/uL (2.0-7.7); Basophil# 0.02 X10^3/uL; Basophil% 0.2 % (0-1); Eosinophil# 0.06 X10^3/uL; Eosinophils% 0.6 % (0-5); Hematocrit 35.8 % (37-47); Hemoglobin 11.8 g/dL (12.0-15.0); Lymphocyte # 1.82 X10^3/ul (0.83-4.51); Mean Corpuscular Hgb 27.6 pg (27.0-32.0); Mean Corpuscular Volume 83.6 fL (81-99); Mean Platelet Vol. 11.5 fl (6.2-12.0); Monocyte% 6.9 % (0-10); NRBC Flagged by Analyzer 0 % (0-5); Neutrophil # 7.45 X10^3/uL (2.7-7.7); Neutrophil % 73.6 % (47-70); Platelet Count 222 K/mm3 (150-450); RBC Distribution Width CV 14.5 % (11.6-14.6); RBC Distribution Width SD 43.2 fl (35.1-43.9); Red Blood Count 4.28 M/mm3 (4.2-5.4); White Blood Count 10.1 K/mm3 (4.4-11.0)
[2021-05-19] MEDS: Acetaminophen 500 MG Tablet 1000 MG PO ×3 (05:58→18:04)
[2021-05-19] MEDS: Lactated Ringers 1,000 ML 150 ML IV (06:11)
[2021-05-19 06:51] LABS: Bedside Glucose 87 mg/dL (74-106)
--- NOTE | 2021-05-19 07:13 | HP.PCM.OB_ITS ---
HPI - General General Date of Admission: 05/19/21 HPI Narrative SIDDHARTH EVERETT, is a 20 F who presents for scheduled primary section. She is a at 39w2d here for a scheduled section. Doing well. No ctx, vb, lof. Good FM. H/o polyhydramnios and A1GDM in this . Expected EFW is the same as weight of first baby. H/o shoulder dystocia and 3rd degree perineal laceration. Maternal Data Information AMIE Calculator Estimated Delivery Date Method Current WG Current Estimate 05/24/21 [facility] 39w 2d [facility] Medical History (Updated 05/19/21 @ 07:[address] Neyda Moyer DO) Anxiety Gestational diabetes Laceration macrosomia Polyhydramnios Vaginal discharge during Home Medications vit,[id number] 1 tab PO DAILY 06/15/19 [History Last Taken 05/18/21 22:30] Allergy/AdvReac Type Severity Reaction Status Date / Time No Known Drug Allergies Allergy none Verified 05/19/21 06:01 Surgical History (Updated 05/19/21 @ 06:09 by Leslee Keyes) History of surgery Social History (Updated 12/09/20 @ 17:[address] Dakotah Mg MD) household members: children Smoking Status: Never smoker alcohol intake: never substance use type: does not use History Elective abortions Hx Para 1 Spontaneous abortions Hx # Term Pregnancies Ectopic pregnancies Hx # Pregnancies Multiple births # of living children Vital Signs Vital Signs Vital Signs: 05/19/21 06:17 Temperature 97.1 F L Temperature Source Temporal Pulse Rate 77 Respiratory Rate 16 Blood Pressure 106/62 Blood Pressure Mean 76 Blood Pressure Source Monitor Blood Pressure Position Semi-Fowlers Blood Pressure Location Right Arm Pulse Ox 98 Oxygen Delivery Method Room Air Weight Weight: 166 lb 14.239 oz Body Mass Index (BMI) 30.5 Physical Exam Const alert and no apparent distress General Appearance: comfortable Labs Labs Labs: Blood Type A POSITIVE Antibody Screen NEGATIVE Hct 35.8 % (37-47) L Hgb 11.8 g/dL (12.0-15.0) L Rhogam given: No Assessment & Plan (1) Polyhydramnios: (2) 39 weeks gestation of : PLAN: History of a shoulder dystocia and third-degree perineal laceration with first delivery. Based on 36-week growth ultrasound in this , this baby is expected to be the same weight or more as first baby. Discussed limitations with the third trimester growth ultrasound with patient and her partner. Extensive counseling in the office on the risks and benefits of expectant management, induction of labor at 39 weeks, scheduled primary section. The patient desires to proceed with a section given risk of shoulder dystocia. Admit for routine preoperative care. Blood work on admis scott. Ancef preop. See history and physical that was scanned in from office. (3) GDM (gestational diabetes mellitus), class A1: (4) History of shoulder dystocia: (5) History of third degree perineal laceration:
[2021-05-19] MEDS: Sodium Citrate/Citric Acid 30 ML UDC PO (07:15)
[2021-05-19] MEDS: Cefazolin 2 GM in 0.9% Normal Saline 100 ML IV (07:25)
[2021-05-19] MEDS: Methylergonovine 0.2 MG/ML Ampul IM (07:57)
--- NOTE | 2021-05-19 08:34 | PCM.OPRPT ---
Problems Associated Problem List Diagnoses (1) History of third degree perineal laceration: (2) History of shoulder dystocia: (3) GDM (gestational diabetes mellitus), class A1: (4) Polyhydramnios: (5) 39 weeks gestation of : Report of Operation Date of Procedure: 05/19/21 Pre-Operative Diagnosis: 39 week gestation, single IUP, suspected macrosomia, polyhydramnios, A1GDM, history shoulder dystocia, history third degree perineal laceration Post-Operative Diagnosis: As above Surgery/Procedure Performed:: Primary section via pfannenstiel incision Description of Surgical Findings:: VMI in cephalic presentation weighing 9lb 6oz. Apgars 9, 9. Light meconium stained fluid. Normal uterus and bilateral adnexa. Normal placenta with 3VC. Surgeon: Neyda Moyer groundskeeping maintenance worker: Chi Lobo Type of Anesthesia: Spinal Special Medications: None Specimen's removed: Placenta Drains: [place] Estimated Blood Loss (mL): 800 Fluids Replaced: See anesthesia record Description of Procedure: She was taken to the operating room where spinal anesthesia was found to be adequate. She was prepped and draped in the dorsal position with a leftward tilt. A Pfannenstiel skin incision was made with a scalpel and this was carried down to the underlying layer of fascia. The fascia was incised in the midline. The fascia was extended laterally using Horn scissors. The fascia was dissected off the rectus muscles using a combination of sharp and blunt dissection. The rectus muscles were midline. The peritoneum was entered bluntly with good visual visualization of the bladder. The peritoneum was extended bluntly. A low transverse incision was made on the uterus with the scalpel. Membranes were ruptured for light meconium stained fluid. The head of the was brought to the hysterotomy in a flexed position. The head followed by the body of the was delivered without any force or delay. A viable male infant was delivered easily through the hysterotomy. The infant was vigorous. The cord was clamped and cut immediately and the infant was handed off to the waiting nursery staff. The uterus was exteriorized. The placenta was removed. Uterus was cleared of all clot and debris. The uterine incision was closed with 1-0 Vicryl in a running locked fashion. A second imbricating layer was placed. Several additional [id number]-[id number] sutures were placed for hemostasis. Adnexa were noted to be normal-appearing bilaterally. The uterus was placed back into the abdomen. [place] was placed over the hysterotomy. Peritoneum was closed with 3-0 Vicryl in a running fashion. The fascia was closed with strata fix in a running fashion. The subcutaneous space was irrigated and made hemostatic with the Bovie cautery. The subcutaneous space was reapproximated using 3-0 Vicryl. Using 4-0 Monocryl the skin was closed with subcuticular fashion. A dressing was placed. Instrument, sponge, needle counts were correct and the patient was taken to the recovery room in stable condition. The assistant administrator Chi BARAKAT assisted with the entire procedure: draping patient, delivery of , closure. Grafts/Implants Used: None Complications None Admit VTE Documentation VTE Present on Admission: No VTE Mechan Device Prophylaxis: SCD's
[2021-05-19] MEDS: Oxytocin 30 units/NS 500 ml 30 UNITS/500 ML IV.SOLN 167 UNITS IV (08:55)
[2021-05-19] MEDS: Ondansetron 4 MG/2 ML Vial IV (09:22)
[2021-05-19] MEDS: Ketorolac 30 MG/ML Syringe IV ×3 (09:22→20:34)
[2021-05-19] MEDS: proCHLORPERazine 10 MG/2 ML Vial IV (10:03)
[2021-05-19 10:36] LABS: Bedside Glucose 99 mg/dL (74-106)
[2021-05-19] MEDS: Lactated Ringers 1,000 ML 100 ML IV (11:47)
[2021-05-19] MEDS: 0.9% Saline Lock 10 ML Syringe IV ×2 (14:40→20:35)
--- NOTE | 2021-05-19 15:30 | CASEMGMT ---
Social Work Assessment Labor and Delivery Unit Date of Referral: 05/19/2021 Time of Referral: 10:50 Referred By: Dr. Neyda Moyer Date of Intervention: 05/19/2021 Time of Intervention: 15:30 Reason for Referral: Mother of baby (MOB) with history of anxiety. History obtained from: MOB, chart, nursing staff. Household composition: MOB, FOB (Zeke Zuluaga), Lissy Zuluaga (: 07/17/2019), and now this , Juwan Zuluaga live in a private home together. Patient's parent/guardian status: MOB and FOB have been together for 5 years. was not planned but accepted. Medical History: MOB with history prior to delivery of this infant. MOB with planned at 39 weeks. Infant born on 05/19/2022 with apgars of 9 and 9 at 1min and 5min. birthweight of 4260g. MOB with appropriate care visits. Infant to follow with Dr. Anna in [place]. MOB plans to breastfeed and reports that is going well. Educational Status: Denies issues with comprehension or understanding. Financial Status: Denies financial concerns. Infant Supplies: MOB reports to have needed supplies including a car seat and crib. 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 Transportation: Denies concerns. Programs/Agencies Involved: MOB reports to be active with [facility]. MOB denies any other community services involvements. Children Services/Legal Issues: Denies legal concerns or history of children services involvement. Mental Health History: MOB with history of Anxiety. MOB reports ?some? depression with first but MOB was able to manage on own. MOB denies any history of suicidal thoughts, plans, intents. MOB denies any current medication for anxiety or counseling. This case management social worker able to engage in conversation about depression sign/symptoms with MOB. MOB reports to have needed support in the community and to feel comfortable speaking with support system if concerns arise. Substance Use History: Denies PHQ9: Did not trigger. Family/Social Stressors: MOB denies any current stressors/concerns. Support Systems: MOB reports to have support from FOB and family/friends. Depression and Anxiety/Shaken Baby/Safe Sleeping: This case management social worker provided MOB with information on depression/anxiety, shaken baby, safe sleeping as well as [facility] resource [facility]. ASSESSMENT: Met with MOB and infant in room. This case management social worker introduced self and case management social worker role. MOB agreeable to speak with this case management social worker. MOB with pleasant and engaged affect. MOB denies concerns on returning to home. MOB reports to have a connection with . Active support and listening provided. PLAN: to discharge to home with family. No other services requested or indicated. Lev WALDEN, MIKEY-S
[2021-05-19] MEDS: Enoxaparin 40 MG/0.4 ML Syringe SC (20:34)
[2021-05-20] MEDS: Acetaminophen 500 MG Tablet 1000 MG PO ×3 (00:17→11:40)
[2021-05-20] MEDS: 0.9% Saline Lock 10 ML Syringe IV (03:05)
[2021-05-20] MEDS: Ketorolac 30 MG/ML Syringe IV (03:05)
[2021-05-20 05:10] VITALS: BP 116/64; PULSE 81; RESP 16; TEMP 36.6; O2SAT 98
[2021-05-20 05:31] LABS: Bedside Glucose 98 mg/dL (74-106)
[2021-05-20 05:31] LABS: Hematocrit 29.8 % (37-47); Hemoglobin 9.7 g/dL (12.0-15.0); Mean Corp Hgb Conc 32.6 g/dL (32-36); Mean Corpuscular Hgb 27.4 pg (27.0-32.0); Mean Corpuscular Volume 84.2 fL (81-99); Mean Platelet Vol. 10.9 fl (6.2-12.0); Platelet Count 176 K/mm3 (150-450); RBC Distribution Width CV 14.5 % (11.6-14.6); RBC Distribution Width SD 43.8 fl (35.1-43.9); Red Blood Count 3.54 M/mm3 (4.2-5.4); White Blood Count 11.5 K/mm3 (4.4-11.0)
[2021-05-20 07:49] VITALS: BP 107/58; PULSE 77; RESP 16; TEMP 36.1; O2SAT 96
[2021-05-20] MEDS: Ibuprofen 600 MG Tablet PO (08:37)
[2021-05-20] MEDS: Senna/Docusate Sodium 1 Tablet PO (10:33)
[2021-05-20 14:10] VITALS: BP 93/62; PULSE 88; RESP 16; TEMP 36.3; O2SAT 97
--- NOTE | 2021-05-20 14:44 | PCM.DC ---
Discharge Instructions Diet Discharge Diet: No restrictions Activity Discharge Activity: May Shower May resume sexual activity in: 6 weeks Weight Bearing Status: Weight bearing as tolerated Dressing / Incision Call your doctor if your incision/area has: Continuous Slow Oozing, Sudden Increased Bleeding, Increased Pain/ Swelling, Increased Redness, Foul Smelling Discharge and Swelling at the incision site Call your doctor if you observe: Fever of 101 or Higher, Coldness, Increased Pain, Change in Color, Inability to urinate, Inability to have a bowel movement, Using more than 1 pad per hour, Shortness of breath, Dizziness, Fainting spells, Chest pain, Increased palpitations (irregular heartbeat), Calf discomfort and Uncontrolled pain Suture Line Care: Avoid Pulling/Pushing and Avoid Pinching/Bending Remove Dressing in: 1 week Cleanse incision/area with: Soap & Water Follow Up Care Please Follow Up With: Neyda Moyer DO When: Follow up in 2 and 6 weeks for visits. Test Results: Test results from this visit will be discussed in further detail at your follow-up appointment, if applicable. Discharge Plan Admission Admit Date/Time: 05/19/21 04:45 Primary Reason for Your Visit: scheduled Attending Provider: Neyda Moyer Primary Care Provider: Care PhysicianKerri Primary Instructions Patient Instructions: After a Discharge Orders/Prescriptions Prescriptions: New acetaminophen 500 mg Tablet 1,000 mg PO Q6 Qty: 0 RF: 0 ibuprofen 600 mg Tablet 600 mg PO Q6H Qty: 0 RF: 0 Slow Fe 142 mg (45 mg iron) tablet extended release 142 mg PO DAILY Qty: 30 RF: 1 Continued vit,[id number] 1 TABLET tablet 1 tab PO DAILY RF: 0 Referrals / Follow Up: Care Physician,No Primary [Primary Care Provider] - Disposition Disposition (needs filled in before D/C Order can be placed): Home, Self Care
--- NOTE | 2021-05-20 14:46 | PCM.PN.OB ---
Subjective Subjective Denies complaints Objective Data Objective Data Vital Signs: Vital Signs Temp Pulse Resp BP Pulse Ox 97.3 F L 88 16 93/62 97 05/20/21 14:10 05/20/21 14:10 05/20/21 14:10 05/20/21 14:10 05/20/21 14:10 Oxygen Delivery Method Room Air Weight: 166 lb 14.239 oz Body Mass Index (BMI) 30.5 Intake & Output: Intake and Output for Last 24 Hours 05/18/21 05/19/21 05/20/21 23:59 23:59 23:59 Intake Total 3726.25 / 3726.25 Output Total 1200 / 1200 Balance 2526.25 / 2526.25 Lab / Micro Data Result Diagrams: 05/20/21 05:20 Labs: Laboratory Results - last 24 hr 05/20/21 05:16: POC Glucose 98 05/20/21 05:20: WBC 11.5 H, RBC 3.54 L, Hgb 9.7 L, Hct 29.8 L, MCV 84.2, MCH 27.4, MCHC 32.6, RDW Std Deviation 43.8, RDW Coeff of [place]ou[place] 14.5, Plt Count 176, MPV 10.9 Micro: Microbiology 05/19/21 05:10 Nasal Secretion SARS-CoV-2 Antigen (Rapid) - Final Physical Exam Const alert, oriented x3 and no apparent distress HEENT normocephalic GI soft to palpation, non-tender and non-distended GI Narrative: fundus firm, mid & below umbilicus Incision - bandage c/d/i Extremity normal to inspection and no calf tenderness Assessment & Plan (1) 39 weeks gestation of : COMMENT: POD#1 PLAN: D/c home per patient request GIGU - no issues Heme - HDS, CBC reviewed ID - AF, no signs infection GDM - plan for 2hr GTT in PP period
== END 2021-05-20 15:05 | disposition home or self-care (01) | DRG 540 ==
PROVIDERS: Admitting Provider Obstetrics & Gynecology; Visit Provider Obstetrics & Gynecology
PROC: 10D00Z1 Extraction of Products of Conception, Low, Open Approach (ICD-10-PCS; CPT 59514; principal; 2021-05-19 07:15)
DX: O40.3XX0 Polyhydramnios, third trimester, not applicable or unspecified (principal); O24.419 Gestational diabetes mellitus in pregnancy, unspecified control; Z3A.39 39 weeks gestation of pregnancy; Z37.0 Single live birth; Z87.59 Personal history of other complications of pregnancy, childbirth and the puerperium; O77.0 Labor and delivery complicated by meconium in amniotic fluid
CPT/HCPCS: 59025; 59050; 82962; 85025; 85027; 86850; 86900; 86901; 87426; 99218; 99251; J7120; A4216; G0378; G0463; J2405

== ENCOUNTER 2023-06-14 16:01 | Emergency (ER) | payer BC, SELFPAY ==
[2023-06-14 16:02] VITALS: BP 95/68; PULSE 99; RESP 16; TEMP 36.4; O2SAT 98; BMI 25.7
--- NOTE | 2023-06-14 16:24 | ED.VIS.DYS ---
HPI History of Present Illness Chief Complaint: Shortness of Breath Informant: patient Onset/Context/Timing Onset: Weeks (2) Context: gradual Timing: Continuous Worsened by: Nothing Relieved by: Nothing Associated Symptoms Negative for cough, rhinorrhea, post nasal drip, ear pain, fever, sore throat, chills, sweats, clear sputum, white sputum, yellow sputum or green sputum Chest Pain: Positive for None Narrative Narrative: Patient presents with shortness of breath that has been getting progressively worse over the past 2 weeks. Patient states it is gradually getting worse. Patient states nothing makes it better nothing makes it worse. Patient denies any chest pain. Patient denies any fevers or chills. Patient denies any sore throat or cough. Patient denies any rhinorrhea. Patient is 27 weeks and was referred to the emergency department by her TEST AND RESEARCH REACTOR OPERATOR for possible pulmonary embolism. [facility] Medical History Anxiety GDM (gestational diabetes mellitus), class A1 Gestational diabetes History of shoulder dystocia History of third degree perineal laceration Laceration macrosomia Polyhydramnios Polyhydramnios Vaginal discharge during Home Medications vits,calcium no.78-iron fumarate-folic acid 29 mg-1 mg tablet 1 tab PO DAILY 06/15/19 [History Last Taken 05/18/21 22:30] ferrous sulfate 142 mg (45 mg iron) tablet,extended release (Slow Fe) 142 mg PO DAILY #30 tabs 05/20/21 [Rx Last Taken Unknown] ibuprofen 600 mg tablet 600 mg PO Q6H #0 tabs 05/20/21 [Rx Last Taken Unknown] Allergy/AdvReac Type Severity Reaction Status Date / Time No Known Drug Allergies Allergy none Verified 06/14/23 16:04 Surgical History History of surgery Social History household members: children Smoking Status: Never smoker alcohol intake: never substance use type: does not use ROS ROS ED Constitutional Constitutional ED: Denies chills or fever(s) Eyes Eyes: Denies blurry vision or change in vision ENT ENT ED: Denies rhinorrhea or sore throat Cardiovascular Cardiovascular: Denies chest pain or palpitations Respiratory/Chest Respiratory/Chest: Reports dyspnea; Denies cough Gastrointestinal Gastrointestinal: Reports nausea; Denies vomiting Genitourinary Genitourinary ED: Denies dysuria or hematuria Musculoskeletal Musculoskeletal: Reports back pain; Denies neck pain Integumentary Denies abscess or rash Neurologic Neurologic: Reports headache(s); Denies weakness Allergic/Immunologic Allergic/Immunologic ED: Denies mouth swelling or urticaria EXAM Physical Exam Const Vital Signs: 06/14/23 16:02 06/14/23 16:25 06/14/23 17:20 Temperature 97.6 F L Temperature Source Oral Pulse Rate 99 92 Respiratory Rate 16 14 Respiratory Effort Short of Breath Respiratory Depth Normal Respiratory Pattern Normal Blood Pressure 95/68 Blood Pressure Mean 77 Pulse Ox 98 100 Oxygen Delivery Method Room Air Room Air 06/14/23 17:36 06/14/23 17:45 06/14/23 18:00 Temperature Temperature Source Pulse Rate 89 97 95 Respiratory Rate 14 15 13 Respiratory Effort Respiratory Depth Respiratory Pattern Blood Pressure 110/70 Blood Pressure Mean 83 Pulse Ox 99 100 100 Oxygen Delivery Method Room Air Positive well nourished and well developed General Appearance ED: well developed and NAD HEENT Reports moist mucous membranes Neck supple and no JVD Resp normal respiratory effort and clear to auscultation bilaterally Auscultation: diminished lung sounds bilateral lower (Bases) Cardio regular rate and regular rhythm GI non-tender and non-distended Palpation: soft Neuro oriented x3, CN's II-XII intact bilaterally and no sensory deficits noted Stefania Coma Scale: document GCS findings Spontaneous Obeys Commands Oriented 15 Sensorium / Orientation: alert Speech: speech normal Motor Exam: strength 5/5 throughout Psych mental status grossly normal Skin General Skin Exam: Negative for jaundice MDM MDM MDM Narrative Medical decision making narrative: Differential diagnosis included pulmonary embolism, pneumonia, pneumothorax, preeclampsia, and electrolyte abnormality. CBC will be obtained to assess for leukocytosis and anemia. Comprehensive metabolic profile will be obtained to assess for hepatic function, renal function, and electrolyte abnormality. Urinalysis will be obtained to assess for urinary tract infection and proteinuria. CTA of the chest will be obtained to assess for pulmonary embolism, pneumonia, pneumothorax. Lab Data Attestation: I reviewed the patient's lab results. Lab results narrative: CBC was reviewed. There is a mild anemia with a hemoglobin of 9.0 and hematocrit 28.0. The remainder is within normal limits. Comprehensive metabolic profile was reviewed. Alkaline phosphatase was slightly elevated at 136. Total bilirubin, AST, and ALT were normal. Urinalysis was reviewed. There is no evidence of urinary tract infection or hematuria. There is no proteinuria. Labs: Laboratory Results - last 24 hr 06/14/23 06/14/23 17:04 17:19 WBC 9.1 RBC 3.36 L Hgb 9.0 L Hct 28.0 L MCV 83.3 MCH 26.8 L MCHC 32.1 RDW Std Deviation 39.0 RDW Coeff of Edouard 12.8 Plt Count 220 MPV 10.1 Immature Gran % (Auto) 0.800 Neut % (Auto) 75.4 H Lymph % (Auto) 16.3 L [place] % (Auto) 6.6 Eos % (Auto) 0.7 Baso % (Auto) 0.2 Absolute Neuts (auto) 6.9 Absolute Lymphs (auto) 1.48 Nucleated RBC % 0 Sodium 136 Potassium 3.9 Chloride 106 Carbon Dioxide 25.0 Anion Gap 5 BUN 9 Creatinine 0.47 L Estim Creat Clear Calc 163.52 Est GFR (MDRD) Af Amer 211 Est GFR (MDRD) Non-Af 174 BUN/Creatinine Ratio 19.2 Glucose 92 Calcium 8.5 Total Bilirubin 0.30 AST 17 ALT 14 Alkaline Phosphatase 136 H Total Protein 6.8 Albumin 2.6 L Globulin 4.2 Albumin/Globulin Ratio 0.6 L Urine Color Yellow Urine Clarity Sl. Cloudy Urine pH 6.5 Ur Specific [place] 1.015 Urine Protein Negative Urine Glucose (UA) Normal Urine Ketones 5 H Urine Occult Blood Negative Urine Nitrite Negative Urine Bilirubin 1 H Urine Urobilinogen 4 H Ur Leukocyte Esterase 25 H Urine RBC 0 SEEN Urine WBC 0-5 SEEN Ur Squamous Epith Cells 5-10 SEEN Urine Bacteria 2+ Urine Mucus RARE Radiography CTA PE Study: No Evidence of PE and No Evidence of Dissection Diagnostic Testing: Clinical Impression(s) from Imaging Studies Chest CTA 06/14/23 16:58 IMPRESSION: Normal CTA chest examination, without a demonstrated pulmonary embolism or arterial dissection. Electronically Signed: Panfilo Todd MD at 18:12 EDT Reading Location ID and State: [facility] / [place] Tel [phone], Service support , CTA of the chest was obtained. There is no pulmonary embolism or aortic dissection. This was interpreted by the radiologist was also independently reviewed by myself. Management Discussion w/another healthcare provider: Nail Kegger Treatment and Re-Evaluation :: Patient was given IV fluids. Patient was advised of her findings. Patient's blood pressure remained stable. Case was discussed with Ailyn Neely, nurse senior infrastructure engineer who referred the patient to the emergency department. She did not want to see the patient in OB tonight. She will follow-up with the patient as an outpatient. Patient will be instructed to follow-up this week. Patient understood and was agreeable with plan. All questions were answered. Discharge Plan Triage Chief Complaint: Shortness of Breath ED Provider: Beau Boogie Dx/Rx/DC Orders Clinical Impression: Shortness of breath, Third trimester Instructions: ED Dyspnea Prescriptions: No Action vit,[id number] 1 TABLET tablet 1 tab PO DAILY ibuprofen 600 mg Tablet 600 mg PO Q6H Qty: 0 0RF Slow Fe 142 mg (45 mg iron) tablet extended release 142 mg PO DAILY Qty: 30 1RF Primary Care Provider: Care Physician,No Primary Referrals: iAlyn Neely CNM [Med Staff - Adv Practice Prof] - 3-5 Days Care Physician,No Primary [Primary Care Provider] - Disposition Disposition: Home, Self Care
--- NOTE | 2023-06-14 16:58 | CT_ITS ---
STUDY: CTA CHEST REASON FOR EXAM: Female, 22 years old. Dyspnea RADIATION DOSAGE (If Supplied By Facility): CTDIvol = ( 7.35 ) mGy, DLP = ( 221.53 ) mGycm TECHNIQUE: The examination was performed with the intravenous administration of IV 75mL Isovue-370. Post-processing of the angiographic images was performed, with multiplanar reformation and 3D reconstruction. Individualized dose optimization techniques were used for this CT. COMPARISON: None. FINDINGS: Normal enhancement of the main pulmonary artery and right and left pulmonary arteries. Normal enhancement of the bilateral peripheral pulmonary arteries. There is no demonstrated pulmonary embolism. Normal thoracic aorta and visualized great vessels. There is no demonstrated aortic dissection. Normal heart and pericardium. Normal mediastinum. Normal hilar regions. Normal visualized trachea and bronchi. The lungs are well expanded. Normal pulmonary parenchyma. Normal pleura. Normal chest wall structures. Normal osseous structures. Normal visualized upper abdomen. CT/CTA Chest W/WO Contrast IMPRESSION: Normal CTA chest examination, without a demonstrated pulmonary embolism or arterial dissection. Electronically Signed: Panfilo Todd MD at 18:12 EDT ,
[2023-06-14] MEDS: 0.9% Normal Saline (1000mL) 1,000 ML 1000 ML IV (17:15)
[2023-06-14 17:19] LABS: Absolute Lymphocyte Count 1.48 X10^3/uL (0.83-4.51); Absolute Neutrophil Count 6.9 X10^3/uL (2.0-7.7); Basophil# 0.02 X10^3/uL; Basophil% 0.2 % (0-1); Eosinophil# 0.06 X10^3/uL; Eosinophils% 0.7 % (0-5); Lymphocyte # 1.48 X10^3/ul (0.83-4.51); Lymphocyte % 16.3 % (19-41); Mean Corp Hgb Conc 32.1 g/dL (32-36); Mean Corpuscular Hgb 26.8 pg (27.0-32.0); Mean Corpuscular Volume 83.3 fL (81-99); Mean Platelet Vol. 10.1 fl (6.2-12.0); Monocyte% 6.6 % (0-10); NRBC Flagged by Analyzer 0 % (0-5); Neutrophil # 6.85 X10^3/uL (2.7-7.7); Neutrophil % 75.4 % (47-70); Platelet Count 220 K/mm3 (150-450); RBC Distribution Width CV 12.8 % (11.6-14.6); Red Blood Count 3.36 M/mm3 (4.2-5.4); White Blood Count 9.1 K/mm3 (4.4-11.0)
[2023-06-14 17:20] VITALS: PULSE 92; RESP 14; O2SAT 100
[2023-06-14 17:26] LABS: Red Blood Cells-Urine 0 SEEN /hpf (0-5)
[2023-06-14 17:28] LABS: Color, Urine Yellow (Yellow); Glucose, Dipstick Normal (Normal); Ketone-Dipstick 5 mg/dl (Negative); Leukocyte Esterase-Dipstick 25 /ul (Negative); Nitrite-Dipstick Negative (Negative); Occult Blood-Urine Negative /ul (Negative); Protein-Dipstick Negative (Negative); Specific Gravity, Urine 1.015 (1.002-1.030); Urine Clarity Sl. Cloudy (Clear); Urine Urobilinogen 4 mg/dl (Normal); Urine pH 6.5 (5.0 - 8.0)
[2023-06-14 17:33] LABS: Urine Bilirubin Dipstick 1 mg/dL (Negative)
[2023-06-14 17:34] LABS: ALB/GLOB Ratio 0.6 RATIO (0.9-2.4); AST(SGOT) 17 U/L (15-37); Alanine Aminotransfer ALT/SGPT 14 U/L (13-56); Albumin, Serum 2.6 g/dL (3.2-5.0); Alkaline Phosphatase 136 U/L (45-117); Anion Gap 5 (5-15); BUN 9 mg/dL (7-18); BUN/Creat Ratio 19.2 RATIO (10-20); Calcium,Total 8.5 mg/dL (8.5-10.1); Chloride 106 mmol/L (98-107); Creatinine, Serum 0.47 mg/dL (0.55-1.02); EST Glomerular Filtration Rate 174 mL/min (>60); Est Glom Filt Rate - Afr Amer 211 mL/min (>60); Estimated Creatinine Clearance 163.52 ml/min; Globulin 4.2 g/dL (2.2-4.2); Glucose 92 mg/dL (74-106); Potassium 3.9 mmol/L (3.5-5.1); Protein, Total 6.8 g/dL (6.4-8.2); Sodium Level 136 mmol/L (136-145)
[2023-06-14 17:34] LABS: Bacteria 2+ /hpf (None Seen); Squamous Epithelial Cells - UA 5-10 SEEN /hpf (5-10); White Blood Cells 0-5 SEEN /hpf (0-5)
[2023-06-14 17:35] LABS: Mucous, Urine RARE /hpf (<or=2+)
[2023-06-14 17:36] VITALS: PULSE 89; RESP 14; O2SAT 99
[2023-06-14 17:45] VITALS: PULSE 97; RESP 15; O2SAT 100
[2023-06-14 18:00] VITALS: BP 110/70; PULSE 95; RESP 13; O2SAT 100
[2023-06-14 19:43] VITALS: BP 135/71; PULSE 65; RESP 13; TEMP 36.8; O2SAT 100
== END 2023-06-14 19:45 | disposition home or self-care (01) ==
PROVIDERS: Emergency Provider Emergency Medicine; Visit Provider Emergency Medicine
DX: O99.891 Other specified diseases and conditions complicating pregnancy (principal); Z3A.27 27 weeks gestation of pregnancy; R06.02 Shortness of breath; R51.9 Headache, unspecified
CPT/HCPCS: 71275; 80053; 81001; 85025; 96360; 99284; J7030; Q9967; A4216

== ENCOUNTER 2023-08-23 13:10 | Outpatient (CLI) | payer BC, SELFPAY ==
[2023-08-23 13:21] VITALS: BP 98/56; PULSE 105; PULSE 113; RESP 16; TEMP 37; O2SAT 97
[2023-08-23 14:14] VITALS: BMI 28.3
[2023-08-23 14:27] LABS: Hematocrit 32.1 % (37-47); Hemoglobin 10.4 g/dL (12.0-15.0); Mean Corp Hgb Conc 32.4 g/dL (32-36); Mean Corpuscular Hgb 26.7 pg (27.0-32.0); Mean Corpuscular Volume 82.3 fL (81-99); Mean Platelet Vol. 10.9 fl (6.2-12.0); Platelet Count 178 K/mm3 (150-450); RBC Distribution Width CV 16.4 % (11.6-14.6); RBC Distribution Width SD 49.1 fl (35.1-43.9); White Blood Count 8.8 K/mm3 (4.4-11.0)
[2023-08-23 14:37] LABS: Protein, Urine (Random) 61.3 mg/dL (<11.9); Protein:Creat Ratio 289 mg/g CRE (0-200)
[2023-08-23 14:52] LABS: AST(SGOT) 17 U/L (15-37); Alanine Aminotransfer ALT/SGPT 23 U/L (13-56); Creatinine, Serum 0.45 mg/dL (0.55-1.02); EST Glomerular Filtration Rate 181 mL/min (>60); Est Glom Filt Rate - Afr Amer 219 mL/min (>60); Estimated Creatinine Clearance 177.18 ml/min; Uric Acid 4.8 mg/dL (2.6-6.0)
--- NOTE | 2023-08-24 07:19 | OB.TRI.NOTE ---
HPI - General General Date of Admission: 08/23/23 Date of Service: 08/23/23 Chief Complaint: R/o Pre HPI Narrative SIDDHARTH FRITZ, is a 23 F who presents r/o pre e elevated BP in office. PI labs wnl. Cat 1 tracing Scheduled repeat c/s Maternal Data Information Final AMIE: 09/09/23 Gestational age: 36+2 PFSH PFSH Medical History Anxiety GDM (gestational diabetes mellitus), class A1 Gestational diabetes History of shoulder dystocia History of third degree perineal laceration Laceration macrosomia Polyhydramnios Polyhydramnios Vaginal discharge during Home Medications ?Medication ?Instructions ?Recorded ?Last Taken ?Type vits,calcium no.78-iron 1 tab PO DAILY 06/15/19 05/18/21 22:30 History fumarate-folic acid 29 mg-1 mg tablet ferrous sulfate 142 mg (45 mg 142 mg PO DAILY #30 tabs 05/20/21 Unknown Rx iron) tablet,extended release (Slow Fe) ibuprofen 600 mg tablet 600 mg PO Q6H #0 tabs 05/20/21 Unknown Rx Allergy/AdvReac Type Severity Reaction Status Date / Time No Known Drug Allergies Allergy none Verified 06/14/23 16:04 Surgical History History of surgery Social History household members: children Smoking Status: Never smoker alcohol intake: never substance use type: does not use History 2 Elective abortions Hx Para 2 Spontaneous abortions Hx # Term Pregnancies Ectopic pregnancies Hx # Pregnancies Multiple births # of living children 2 NST FHR Rate Baby A Baseline: 150 Variability:: Moderate Accelerations:: 15 x 15 Decelerations:: None NST Reactive:: Yes FHR Category:: Category I Uterine Activity:: quiet Assessment & Plan (1) Elevated BP without diagnosis of hypertension: PLAN: Normal labs PLAN: Plan Follow up in office
== END 2023-08-23 15:25 | disposition home or self-care (01) ==
LOC: WPOUT 13:15 → WP 13:15
PROVIDERS: Obstetrics & Gynecology; Referring Provider Obstetrics & Gynecology; Visit Provider Obstetrics & Gynecology
DX: O99.891 Other specified diseases and conditions complicating pregnancy (principal); R03.0 Elevated blood-pressure reading, without diagnosis of hypertension; Z3A.00 Weeks of gestation of pregnancy not specified
CPT/HCPCS: 36415; 59025; 59050; 82565; 82570; 84156; 84450; 84460; 84550; 85027; 99221; G0378

== ENCOUNTER 2023-09-09 10:07 | Inpatient (IN) | payer BC, SELFPAY ==
[2023-09-09] VITALS (23 sets, daily range): BP systolic 93–121; BP diastolic 49–72; PULSE 69–207; RESP 10–23; TEMP 36.2–36.5; O2SAT 82–100; BMI 28.0
--- NOTE | 2023-09-09 09:38 | PCM.HP.BLA ---
History and Physical Date of Admission: 09/09/23 PROBLEM: repeat section PAST SURGICAL HISTORY: PAST SURGICAL HISTORY PAST SURGICAL HISTORY Procedure Laterality Date ? DELIVERY ONLY 05/19/2021 LTCS ? PAST SURGICAL HISTORY OF repair of lazy eye x3 PAST MEDICAL HISTORY: PAST MEDICAL HISTORY PAST MEDICAL HISTORY Diagnosis Date ? Anemia ? Gestational diabetes mellitus, class A1 03/12/2021 ? History of shoulder dystocia in prior 09/18/2020 ? Hx of maternal laceration, 3rd degree, currently 09/26/2020 ? Lazy eye ? depression and anxiety ? Third degree perineal laceration during delivery 09/18/2020 SUBJECTIVE: Pt doing well SOCIAL HISTORY: SOCIAL HISTORYExpand by Default Social History Tobacco Use ? Smoking status: Never ? Smokeless tobacco: Never Vaping Use ? Vaping Use: Never used Substance Use Topics ? Alcohol use: Never ? Drug use: Never Allergies: No Known Allergies Current Outpatient Medications on File Prior to Visit Medication Sig ? ferrous sulfate 325 mg (65 mg iron) tablet Take 1 tablet by mouth every other day. ? vit-iron fumarate-fa ( FORMULA) 28 mg iron- 800 mcg tab Take 1 tablet by mouth once daily. No current facility-administered medications on file prior to visit. OBJECTIVE: VITALS: BP 100/62 Pulse 80 Resp 14 Ht 157.5 cm (5' 2) Wt 69.6 kg (153 lb 6.4 oz) LMP 12/10/2022 (Exact Date) BMI 28.06 kg/m? HEENT: Normocephalic, atraumatic, Mucus membranes moist without lesions. SKIN: No lesions. CHEST: No increased respiratory effort. HEART: Regular rate. BACK: Nontender with no CVA tenderness. ABDOMEN: Soft, non-tender, non-distended, no masses, no hepatosplenomegaly. LOWER EXTREMITIES: There was no pitting edema. ASSESSMENT: repeat section, history macrosomia, history third degree perineal laceration, history of shoulder dystocia PLAN: 1) Discussed r/b/a repeat section in detail. The rationale for the proposed surgery was discussed in addition to risks, benefits, and alternatives. General pre- and post-operative care was reviewed. Questions were answered. After discussion, the patient indicated a desire to proceed with the planned surgery. Consent signed. Neyda Moyer, DO Assessment & Plan Assessment/Plan (1) 39 weeks gestation of : (2) History of delivery: (3) History of macrosomia in in prior , currently : (4) History of third degree perineal laceration: (5) History of shoulder dystocia: (6) Accelerated growth of fetus: (7) Polyhydramnios affecting :
[2023-09-09] MEDS: Lactated Ringers 1,000 ML 999 ML IV (10:30)
[2023-09-09 10:51] LABS: Absolute Lymphocyte Count 1.53 X10^3/uL (0.83-4.51); Absolute Neutrophil Count 6.8 X10^3/uL (2.0-7.7); Basophil# 0.02 X10^3/uL; Basophil% 0.2 % (0-1); Eosinophil# 0.04 X10^3/uL; Eosinophils% 0.4 % (0-5); Hematocrit 33.8 % (37-47); Hemoglobin 10.8 g/dL (12.0-15.0); Lymphocyte # 1.53 X10^3/ul (0.83-4.51); Lymphocyte % 17.2 % (19-41); Mean Corpuscular Hgb 26.6 pg (27.0-32.0); Mean Corpuscular Volume 83.3 fL (81-99); Mean Platelet Vol. 10.9 fl (6.2-12.0); Monocyte# 0.45 X10^3/uL; NRBC Flagged by Analyzer 0 % (0-5); Neutrophil # 6.83 X10^3/uL (2.7-7.7); Neutrophil % 76.6 % (47-70); Platelet Count 165 K/mm3 (150-450); RBC Distribution Width CV 15.8 % (11.6-14.6); RBC Distribution Width SD 48.1 fl (35.1-43.9); Red Blood Count 4.06 M/mm3 (4.2-5.4); White Blood Count 8.9 K/mm3 (4.4-11.0)
[2023-09-09] MEDS: Sodium Citrate/Citric Acid 30 ML UDC PO (11:22)
[2023-09-09] MEDS: Acetaminophen 500 MG Tablet 1000 MG PO ×3 (11:22→23:36)
[2023-09-09 11:26] LABS: Syphilis Antibodies Non-reactive
[2023-09-09] MEDS: Lactated Ringers 1,000 ML 150 ML IV (11:44)
[2023-09-09] MEDS: Cefazolin 2 GM in 0.9% Normal Saline (100mL Bag) 100 ML IV (12:01)
--- NOTE | 2023-09-09 13:28 | PCM.OPRPT ---
Problems Associated Problem List Diagnoses (1) Polyhydramnios affecting : (2) Accelerated growth of fetus: (3) History of macrosomia in in prior , currently : (4) History of delivery: (5) History of shoulder dystocia: (6) History of third degree perineal laceration: Report of Operation Date of Procedure: 09/09/23 Pre-Operative Diagnosis: 39 week gestation, single IUP, accelerated growth, history of shoulder dystocia, history third degree perineal laceration, history section Post-Operative Diagnosis: As above Surgery/Procedure Performed:: RLTCS via pfannenstiel incision Description of Surgical Findings:: VMI weighing 9 lbs with apgars 8, 9. Clear fluid. Normal appearing uterus and bilateral adnexa. Moderate adhesive disease with fascia adhered to rectus muscles and peritoneum adhered to the rectus muscles. Normal appearing placenta with 3VC. Surgeon: Neyda Moyer esthetician/spa coordinator: Chace BARAKAT Type of Anesthesia: Spinal Special Medications: None Specimen's removed: Placenta Drains: Shore Estimated Blood Loss (mL): 800 Fluids Replaced: 600 mL Description of Procedure: The patient was taken to the OR where spinal anesthesia was adequate. She was prepped and draped in the dorsal supine position with a leftward tilt. A pfannenstiel skin incision was made with a scalpel and carried down to the underlying layer of fascia. The fascia was incised in the midline. The fascial incision was extended laterally using holly scissors. The fascia was dissected minimally off of the rectus muscles in a cephalad direction and the peritoneum was noted. The peritoneum was entered bluntly and no adhesions were noted underneath. The peritoneal incision was extended bluntly with lateral traction. Bladder blade was inserted. A bladder flap was created using Metzenbaum scissors. A low transverse incision was made on the uterus with a scalpel. Membranes were ruptured for clear fluid. The uterine incision was extended bluntly with traction with both cephalad and caudad. A vigorous viable male infant was delivered without any force, traction, or delay and the head was flexed during delivery. The cord was clamped and cut after a slight delay. The was handed off to the awaiting nursery staff. The placenta was removed with manual extraction. The uterus was cleared of all clot and debris. The uterus was exteriorized. 1-0 Vicryl was used to close the hysterotomy in a running locked fashion. The uterus was placed back into the abdomen. [place] was placed over the hysterotomy and lower uterine segment. Hemostasis was noted. The peritoneum was closed with 3-0 Vicryl in a running fashion. The subfascial space was noted to be hemostatic. The fascia was closed with STRATAFIX in a running fashion. The subcutaneous space was irrigated and made hemostatic with the Bovie cautery. The subcutaneous space was reapproximated using 3-0 Vicryl. The skin was closed with 4 Monocryl in a subcuticular fashion. A dressing was placed. Instrument, sponge, sharp counts were correct and the patient was taken to recovery in stable condition. Grafts/Implants Used: None Procedure Start Time: 12:31 Complications None Admit VTE Documentation VTE Present on Admission: No VTE Mechan Device Prophylaxis: SCD's
[2023-09-09] MEDS: Oxytocin 15 Units/NS 250ml 15 UNITS/250 ML IV.SOLN 83 UNITS IV (13:50)
[2023-09-09] MEDS: Ketorolac 30 MG/ML Syringe IV ×2 (14:17→20:07)
[2023-09-09] MEDS: Ondansetron 4 MG/2 ML Vial IV ×2 (16:48→22:43)
[2023-09-09] MEDS: Lactated Ringers 1,000 ML 100 ML IV (17:22)
[2023-09-10] VITALS (7 sets, daily range): BP systolic 90–100; BP diastolic 53–71; PULSE 80–89; RESP 16–18; TEMP 36.6–36.7; O2SAT 92–99
[2023-09-10] MEDS: Ketorolac 30 MG/ML Syringe IV ×2 (02:18→08:20)
[2023-09-10 03:15] LABS: Hematocrit 26.5 % (37-47); Hemoglobin 8.6 g/dL (12.0-15.0); Mean Corp Hgb Conc 32.5 g/dL (32-36); Mean Corpuscular Volume 83.1 fL (81-99); Mean Platelet Vol. 11.3 fl (6.2-12.0); Platelet Count 257 K/mm3 (150-450); RBC Distribution Width CV 15.6 % (11.6-14.6); RBC Distribution Width SD 47.6 fl (35.1-43.9); Red Blood Count 3.19 M/mm3 (4.2-5.4); White Blood Count 16.5 K/mm3 (4.4-11.0)
[2023-09-10] MEDS: Lactated Ringers 1,000 ML 100 ML IV (04:00)
[2023-09-10] MEDS: Acetaminophen 500 MG Tablet 1000 MG PO ×4 (05:28→23:58)
--- NOTE | 2023-09-10 07:18 | PN.OBGYN_ITS ---
Subjective Subjective Feeling better this am. Nausea and vomiting after delivery. Passed out in the bathroom overnight. Bleeding light VVS. Has not had anything to eat since prior to scheduled section. Pain controlled. Breast feeding. Objective Data Objective Data Vital Signs: Vital Signs Temp Pulse Resp BP Pulse Ox O2 Del Method 97.6 F L 80 16 90/57 L 98 Room Air 09/09/23 20:12 09/10/23 03:26 09/10/23 03:26 09/10/23 03:26 09/10/23 03:26 09/10/23 03:26 Oxygen Delivery Method Room Air Weight: 69.49 kg Body Mass Index (BMI) 28.0 Intake & Output: Intake and Output for Last 24 Hours 09/08/23 09/09/23 09/10/23 23:59 23:59 23:59 Intake Total 1497.5 / 1497.5 1000 / 1000 Output Total 1200 / 1200 Balance 297.5 / 297.5 1000 / 1000 Lab / Micro Data 09/10/23 03:05 Labs: Laboratory Results - last 24 hr 09/09/23 10:30: WBC 8.9, RBC 4.06 L, Hgb 10.8 L, Hct 33.8 L, MCV 83.3, MCH 26.6 L, MCHC 32.0, RDW Std Deviation 48.1 H, RDW Coeff of Edouard 15.8 H, Plt Count 165, MPV 10.9, Immature Gran % (Auto) 0.600, Neut % (Auto) 76.6 H, Lymph % (Auto) 17.2 L, [place] % (Auto) 5.0, Eos % (Auto) 0.4, Baso % (Auto) 0.2, Absolute Neuts (auto) 6.8, Absolute Lymphs (auto) 1.53, Nucleated RBC % 0, Syphilis Total Ab Non-reactive, Blood Type A POSITIVE, Antibody Screen NEGATIVE 09/10/23 03:05: WBC 16.5 H, RBC 3.19 L, Hgb 8.6 L, Hct 26.5 L, MCV 83.1, MCH 27.0, MCHC 32.5, RDW Std Deviation 47.6 H, RDW Coeff of Edouard 15.6 H, Plt Count 257, MPV 11.3 ROS Constitutional Constitutional: Denies fever(s) or malaise Eyes Eyes: Denies change in vision ENT HEENT: Denies headache(s) Cardiovascular Cardiovascular: Denies chest pain or dyspnea Respiratory/Chest Respiratory/Chest: Denies cough or dyspnea Gastrointestinal Gastrointestinal: Denies change in bowel habits Neurologic Neurologic: Denies confusion, headache(s) or numbness Physical Exam Const alert General Appearance: cooperative GI GI Narrative: soft, moderate distention, fundus firm, appropriately tender. Abdominal bandage clean dry and intact Assessment & Plan (1) S/P : PLAN: Continue fluids until tolerating PO Routine post care PLAN: Plan Anticipate discharge tomorrow
[2023-09-10] MEDS: SimETHICONE 80 MG Chewable Tablet PO ×2 (10:15→17:20)
[2023-09-10] MEDS: Senna/Docusate Sodium 1 Tablet PO (10:15)
[2023-09-10] MEDS: 0.9% Saline Lock 10 ML Syringe IV (10:16)
--- NOTE | 2023-09-10 13:49 | CASEMGMT ---
Social Work Labor and Delivery Unit Date/Time of referral: 09/10/23, 12:42pm Referred by: Dr. Neyda Moyer DO Date/Time of intervention: 09/10/23, 1:15pm Reason for referral: Mental Health, anxiety History obtained from: [facility] Household composition: MOB and FOB, children Lissy and Juwan and now baby Arnaud. This is MOB and FOB's third child together, they have been together 7 years and one year. Patient's parent/guardian status: MOB and FOB are the guardians of this baby. Medical History: MOB: history PPD, anxiety, history of repeat c-sections. Baby: Arnaud born 09[birth year], Apgars 8 and 9 at one and five minutes, 4080 grams at , inguinal testicle Educational Status: Both MOB and FOB completed the 12th grade Financial Status: MOB states no concerns. MOB stays home, FOB is a supervisor drapery hanging with [employer] in [place]. supplies: They have all needed supplies for the baby including diapers, wipes, clothing, car set, crib, bassinet. MOB planning to breast feed, has access to formula and bottles if needed. Transportation: They have 2 vehicles. Childcare/Caregivers: MOB, FOB, FOB's parents can help if needed. Programs/Agencies involved: None, do not have [facility] Children's Services/Legal Issues: No involvement Behavioral Health issues: Substance abuse: No history for FOB or MOB, no toxicology screens documented in [facility], tox screen not completed on the baby. Mental Health: No history for FOB. MOB--history of anxiety, PPD. MOB states symptoms started after the of the first child, she did not have symptoms after the of their second child in 2021. MOB states she did go on a mood stabilizer short term when she was having symptoms and it was helpful. She states is open to this again should it be warranted. She states her symptoms were crying and feeling a tightness in her chest. MOB has not been in counseling, has not felt the need for it. Safety: MOB reports no safety concerns at this time. Family/Social Stressors: MOB reports none at this time. Depression/Anxiety/Shaken baby/Safe sleeping/Help Me Grow/Mental Health Resources/[facility] Health Hotlines/[facility] Resources: SW gave MOB all of these resources and reviewed them with her. SW reviewed in particular information on PPD and anxiety and warning signs. SW encouraged MOB to speak w/her doctor should she start having symptoms, and she is open to this as has done it in the past, and is open to going on a mood stabilizer, as it has been helpful in the past. SW also gave information for counseling, MOB seems open to the idea should she have symptoms again of PPD and anxiety. Assessment: MOB open in speaking w/SW, answered all questions appropriately. MOB bright in demeanor, good eye contact. MOB holding baby when SW in the room, baby sleeping, MOB appropriate in care of while SW in the room. Plan: Baby to go home w/MOB and FOB at discharge, no further social service needs anticipated at this time. CHRIS Machado
[2023-09-10] MEDS: Ibuprofen 600 MG Tablet PO ×2 (14:47→20:49)
[2023-09-11 02:03] VITALS: PULSE 99; O2SAT 99
[2023-09-11 02:04] VITALS: BP 113/57; PULSE 101
[2023-09-11 02:12] VITALS: BP 113/57; PULSE 104; RESP 16; TEMP 36.3; O2SAT 97
[2023-09-11] MEDS: Ibuprofen 600 MG Tablet PO ×2 (02:17→08:20)
[2023-09-11] MEDS: Acetaminophen 500 MG Tablet 1000 MG PO (06:09)
[2023-09-11 08:22] VITALS: BP 100/55; PULSE 98
[2023-09-11 08:23] VITALS: BP 100/55; PULSE 70; RESP 16; TEMP 36.3; O2SAT 100
--- NOTE | 2023-09-11 08:28 | PCM.DC.SUM ---
Providers Date of Admission: 09/09/23 Primary Care Physician: Kerri Primary Care Phys Reason For Visit: REPEAT Diagnosis Discharge Diagnosis (1) S/P : Status: Acute Code(s): Z98.891 - History of uterine scar from previous surgery (2) Care and examination of lactating mother: Status: Acute Code(s): Z39.1 - Encounter for care and examination of lactating mother Medications at Discharge Home Medications vits,calcium no.78-iron fumarate-folic acid 29 mg-1 mg tablet 1 tab PO DAILY 06/15/19 ferrous sulfate 142 mg (45 mg iron) tablet,extended release 142 mg PO DAILY anemia 09/09/23 acetaminophen 500 mg tablet 1,000 mg (2 x 500 mg) PO Q6H #0 tabs 09/11/23 ibuprofen 600 mg tablet 600 mg PO Q6H #0 tabs 09/11/23 sennosides 8.6 mg-docusate sodium 50 mg tablet (Stimulant Laxative Plus) 1 - 2 tab PO DAILY #0 tabs 09/11/23 Hospital Course Operations section Procedures None Summary of Care Provided Minutes Spent on Discharge: 15 Hospital Course: Patient had scheduled, repeat section. Hospital course was uneventful. Physical Exam Narrative Patient seen at bedside. Ambulating and voiding without difficulty. independently. Denies headache, vision changes, SOB, or CP. Lochia decreased. Desires discharge home today. Const alert and no apparent distress General Appearance: cooperative and comfortable Exam Limitations: no limitations HEENT normocephalic Eyes General Eye: normal appearance of both eyes Neck full ROM General: normal visual inspection Chest Chest: symmetrical chest wall rise Resp normal respiratory effort and normal air movement Effort and Inspection: symmetric chest movement Auscultation: clear to auscultation bilaterally Cardio regular rate and regular rhythm GI normal to inspection, nondistended, normoactive bowel sounds Back/Spine normal ROM Extremity full ROM and no calf tenderness General Extremity: normal exam except as noted Skin no rashes or lesions noted Neuro CN's II-XII intact bilaterally Psych mental status grossly normal Weight / BMI Weight Weight: 153 lb 3.2 oz Body Mass Index (BMI) 28.0 ABG / Lab / Microbiology Data 09/10/23 03:05 D/C Instructions Discharge Diet: No restrictions May resume sexual activity in: 6-8 weeks Weight Bearing Status: Weight bearing as tolerated Lifting Restrictions: 20 lbs Call your doctor if your incision/area has: Continuous Slow Oozing, Increased Pain/ Swelling, Increased Redness, Foul Smelling Discharge and Swelling at the incision site Call your doctor if you observe: Fever of 101 or Higher, Inability to urinate, Using more than 1 pad per hour, Shortness of breath, Chest pain, Calf discomfort and Uncontrolled pain Remove Dressing in: 5 days Cleanse incision/area with: Soap & Water and Keep Dressing Clean & Dry Please Follow Up With: Siri Portillo CNM When: 1 week in office for incision check or sooner if needed 6 weeks Meaningful Use Info Meaningful Use Meaningful Use Diagnoses (Choose all that apply): None applicable Ischemic Stroke Statin Dosing Therapy Reference: STATIN DOSE THERAPY REFERENCE: * Patients > 75 years receive moderate or high dose statin therapy. * Patients 75 years or YOUNGER should receive HIGH intensity statin dose unless contraindicated. You will be required to document reason for non-treatment if statin daily dose does not meet guidelines. HIGH DOSE STATIN THERAPY DAILY Atorvastatin > than or = to 40 mg Rosuvastatin > than or = to 20 mg Amlodipine + Atorvastatin > than or = to 2.5/40 mg Ezetimibe + Simvastatin 10/80 mg Simvastatin 80mg Discharge Plan Admission Admit Date/Time: 09/09/23 10:07 Primary Reason for Your Visit: Repeat Section Attending Provider: Neyda Moyer Primary Care Provider: Care PhysicianKerri Primary Discharge Orders/Prescriptions Prescriptions: New sennosides-docusate sodium [Stimulant Laxative Plus] 8.6-50 mg Tablet 1 - 2 tab PO DAILY Qty: 0 0RF acetaminophen 500 mg Tablet 1,000 mg PO Q6H Qty: 0 0RF ibuprofen 600 mg Tablet 600 mg PO Q6H Qty: 0 0RF Continued vit,[id number] 1 TABLET tablet 1 tab PO DAILY No Action Slow Fe 142 mg (45 mg iron) tablet extended release 142 mg PO DAILY Referrals / Follow Up: Care Physician,Kerri Primary [Primary Care Provider] - Disposition Disposition (needs filled in before D/C Order can be placed): Home, Self Care
[2023-09-11] MEDS: SimETHICONE 80 MG Chewable Tablet PO (08:29)
[2023-09-11] MEDS: Senna/Docusate Sodium 1 Tablet PO (10:38)
== END 2023-09-11 11:35 | disposition home or self-care (01) | DRG 807 ==
PROVIDERS: Admitting Provider Obstetrics & Gynecology; Visit Provider Obstetrics & Gynecology
PROC: 10D17Z9 Manual Extraction of Products of Conception, Retained, Via Natural or Artificial Opening (ICD-10-PCS; CPT 59514; principal; 2023-09-09 11:45)
DX: O34.211 Maternal care for low transverse scar from previous cesarean delivery (principal); Z37.0 Single live birth; O40.3XX0 Polyhydramnios, third trimester, not applicable or unspecified; O99.02 Anemia complicating childbirth; Z3A.39 39 weeks gestation of pregnancy; Z86.32 Personal history of gestational diabetes
CPT/HCPCS: 59025; 59050; 85025; 85027; 86780; 86850; 86900; 86901; 99221; J7120; A4216; G0378; J2405